=== PATIENT | female | born 1995 | race African-American/Black ===

== ENCOUNTER 2016-07-30 13:09 | Emergency (ER) | payer MEDICAID ==
--- NOTE | 2016-07-30 13:15 | ER Document Report ---
ED Medical Screen (RME) - General Stated Complaint: ABDOMINAL PAIN Notes: 20 yo female c/o lower abdominal pain x 1 week. + hx/o left ovarian cyst. + intermittant sharp lower left quadrant pain. no urinary symptoms. no fever. pt reports painful blister to left groin x 2 weeks, getting bigger and more painful. TRAVEL OUTSIDE OF THE [place] IN LAST 30 DAYS: No - Related Data Allergies/Adverse Reactions: No Known Allergies Allergy (Verified 10/30/15 20:35) Past Medical History - Past Medical History Cardiac Medical History: Reports: Hx Hypertension Neurological Medical History: Reports: Hx Migraine, Hx Seizures - PSUEDO Endocrine Medical History: Reports: Hx Hypothyroidism GI Medical History: Denies: Hx Gastritis, Hx Gastroesophageal Reflux Disease, Hx Ulcer Psychiatric Medical History: Reports: Hx Anxiety - panic attacks - Immunizations Immunizations up to date: Yes Hx Diphtheria, Pertussis, Tetanus Vaccination: Yes
[2016-07-30 13:51] LABS: ABSOLUTE LYMPHOCYTES (AUTO) 2.3 10^3/uL (0.5-4.7); ABSOLUTE MONOCYTES (AUTO) 0.4 10^3/uL (0.1-1.4); ABSOLUTE NEUT (AUTO) 4.5 10^3/uL (1.7-8.2); BASOPHILS % (AUTO) 0.4 % (0-2); EOSINOPHILS % (AUTO) 0.4 % (0-6); HEMATOCRIT 37.4 % (36.0-47.0); HEMOGLOBIN 12.4 g/dL (12.0-15.5); HGB HCT DIFFERENCE -0.2; LYMPHOCYTES % (AUTO) 31.3 % (13-45); MEAN CORPUSCULAR HGB CONC 33.1 g/dL (32.0-36.0); MEAN CORPUSCULAR VOLUME 91 fl (80-97); RED BLOOD COUNT 4.13 10^6/uL (3.72-5.28); SEGMENTED NEUTROPHILS % (AUTO) 61.9 % (42-78); WHITE BLOOD COUNT 7.3 10^3/uL (4.0-10.5)
[2016-07-30 14:07] LABS: APPEARANCE,URINE SLIGHTLY-CLOUDY; BILIRUBIN,URINE NEGATIVE (NEGATIVE); GLUCOSE, URINE NEGATIVE (NEGATIVE); KETONES,URINE NEGATIVE (NEGATIVE); LEUKOCYTE ESTERASE,URINE TRACE (NEGATIVE); NITRITE,URINE NEGATIVE (NEGATIVE); PROTEIN,URINE NEGATIVE (NEGATIVE); UROBILINOGEN,URINE NEGATIVE mg/dL (<2.0)
[2016-07-30 14:14] LABS: ALANINE AMINOTRANSFERASE 37 U/L (5-35); ALBUMIN 4.4 g/dL (3.7-5.6); ALKALINE PHOSPHATASE 60 U/L (50-135); ANION GAP 13 (5-19); ASPARTATE AMINO TRANSFERASE 26 U/L (5-30); BILIRUBIN,TOTAL 0.5 mg/dL (0.2-1.3); BLOOD UREA NITROGEN 16 mg/dL (7-20); CALCIUM 9.9 mg/dL (8.4-10.2); CARBON DIOXIDE 28 mmol/L (22-30); CHLORIDE 100 mmol/L (98-107); CREATININE RESULT 0.69 mg/dL (0.52-1.25); GLUCOSE 107 mg/dL (75-110); POTASSIUM 4.1 mmol/L (3.6-5.0); SODIUM 141.3 mmol/L (137-145); TOTAL PROTEIN 7.6 g/dL (6.3-8.2)
[2016-07-30] MEDS ORDERED: OXYCODONE-ACETAMINOPHEN 5-325 MG TABLET PO ONE (14:18)
--- NOTE | 2016-07-30 14:22 | ER Document Report ---
HPI - HPI Patient complains to provider of: left groin pain Onset: Other - Since May, worsened over the past few days Onset/Duration: Worse Quality of pain: Sharp Pain Level: 4 Context: Patient complains of a tender lump to left groin area that she states started in May of last year. Patient states she was told it was a cyst. Patient states area has gradually become more swollen and tender. Patient denies any fever. Patient additionally complains of occasional numbness to her fingertips into the anterior aspect of her left leg. Associated Symptoms: Other - Left groin lump. denies: Nonproductive cough, Fever Exacerbated by: Movement, Walking Relieved by: Denies Similar symptoms previously: Yes Recently seen / treated by doctor: No - ROS ROS below otherwise negative: Yes Systems Reviewed and Negative: Yes All other systems reviewed and negative - CONSTITUTIONAL Constitutional: DENIES: Fever, Chills - REPRODUCTIVE Reproductive: REPORTS: : - DERM Skin Color: Normal Past Medical History - Social History Smoking Status: Current Every Day Smoker Chew tobacco use (# tins/day): No Frequency of alcohol use: None Drug Abuse: None Family History: Reviewed & Not Pertinent Patient has suicidal ideation: No Patient has homicidal ideation: No - Past Medical History Cardiac Medical History: Reports: Hx Hypertension Neurological Medical History: Reports: Hx Migraine, Hx Seizures - PSUEDO Endocrine Medical History: Reports: Hx Hypothyroidism GI Medical History: Denies: Hx Gastritis, Hx Gastroesophageal Reflux Disease, Hx Ulcer Psychiatric Medical History: Reports: Hx Anxiety - panic attacks - Immunizations Immunizations up to date: Yes Hx Diphtheria, Pertussis, Tetanus Vaccination: Yes Vertical Provider Document - CONSTITUTIONAL Agree With Documented VS: Yes Exam Limitations: No Limitations General Appearance: WD/WN, No Apparent Distress - INFECTION CONTROL TRAVEL OUTSIDE OF THE [place] IN LAST 30 DAYS: No - HEENT HEENT: Atraumatic, Normal ENT Exam, Normocephalic - NECK Neck: Normal Inspection, Supple - RESPIRATORY Respiratory: Breath Sounds Normal, No Respiratory Distress O2 Sat by Pulse Oximetry: 100 - CARDIOVASCULAR Cardiovascular: Regular Rate - Apical 100 bpm, Regular Rhythm, No Murmur - GI/ABDOMEN Gastrointestinal: Abdomen Soft, Abdomen Non-Tender, No Organomegaly - REPRODUCTIVE Female Genitalia: Abnormal Inspection - Patient with a tender fluctuant swelling to left inguinal area concerning for infected abscess type lesion, no surrounding erythema. Lesion well demarcated and mobile. Exquisitely tender with palpation. - BACK Back: Normal Inspection. negative: CVA Tenderness-Right, CVA Tenderness-Left - MUSCULOSKELETAL/EXTREMETIES Musculoskeletal/Extremeties: MAX [place] - NEURO Level of Consciousness: Awake, Alert, Appropriate Motor/Sensory: No Motor Deficit - DERM Integumentary: Warm, Dry, Abscess - left groin Adult Front & Back Diagram: 1 - 2 cm diameter fluctuant cystic lesion exquisitely tender with palpation Course - Vital Signs Vital signs: Temp Pulse Resp BP Pulse Ox 97.8 F 105 H 16 123/71 100 07/30/16 13:14 07/30/16 13:14 07/30/16 13:14 07/30/16 13:14 07/30/16 13:14 - Laboratory Result Diagrams: 07/30/16 13:20 07/30/16 13:20 Laboratory results interpreted by me: 07/30/16 07/30/16 13:20 13:25 ALT 37 H Ur Leukocyte Esterase TRACE H 07/30/16 19:46 Labs- Entire Visit 07/30/16 07/30/16 07/30/16 13:20 13:20 13:20 WBC 7.3 RBC 4.13 Hgb 12.4 Hct 37.4 MCV 91 MCH 30.0 MCHC 33.1 RDW 13.0 Plt Count 213 Seg Neutrophils % 61.9 Lymphocytes % 31.3 Monocytes % 6.0 Eosinophils % 0.4 Basophils % 0.4 Absolute Neutrophils 4.5 Absolute Lymphocytes 2.3 Absolute Monocytes 0.4 Absolute Eosinophils 0.0 Absolute Basophils 0.0 Sodium 141.3 Potassium 4.1 Chloride 100 Carbon Dioxide 28 Anion Gap 13 BUN 16 Creatinine 0.69 Est GFR ( Amer) > 60 Est GFR (Non-Af Amer) > 60 Glucose 107 Calcium 9.9 Total Bilirubin 0.5 Direct Bilirubin 0.0 AST 26 ALT 37 H Alkaline Phosphatase 60 Total Protein 7.6 Albumin 4.4 Serum HCG, Qual NEGATIVE Urine Color Urine Appearance Urine pH Ur Specific [place] Urine Protein Urine Glucose (UA) Urine Ketones Urine Blood Urine Nitrite Urine Bilirubin Urine Urobilinogen Ur Leukocyte Esterase Urine WBC (Auto) Urine RBC (Auto) Urine Bacteria (Auto) Squamous Epi Cells Auto Urine Mucus (Auto) Urine Ascorbic Acid 07/30/16 13:25 WBC RBC Hgb Hct MCV MCH MCHC RDW Plt Count Seg Neutrophils % Lymphocytes % Monocytes % Eosinophils % Basophils % Absolute Neutrophils Absolute Lymphocytes Absolute Monocytes Absolute Eosinophils Absolute Basophils Sodium Potassium Chloride Carbon Dioxide Anion Gap BUN Creatinine Est GFR ( Amer) Est GFR (Non-Af Amer) Glucose Calcium Total Bilirubin Direct Bilirubin AST ALT Alkaline Phosphatase Total Protein Albumin Serum HCG, Qual Urine Color YELLOW Urine Appearance SLIGHTLY-CLOUDY Urine pH 7.0 Ur Specific [place] 1.020 Urine Protein NEGATIVE Urine Glucose (UA) NEGATIVE Urine Ketones NEGATIVE Urine Blood NEGATIVE Urine Nitrite NEGATIVE Urine Bilirubin NEGATIVE Urine Urobilinogen NEGATIVE Ur Leukocyte Esterase TRACE H Urine WBC (Auto) 0 Urine RBC (Auto) 0 Urine Bacteria (Auto) TRACE Squamous Epi Cells Auto 9 Urine Mucus (Auto) RARE Urine Ascorbic Acid NEGATIVE Procedures - Incision and Drainage Left Groin Type: Simple Anesthetic type: 1% Lidocaine Blade size: 11 I&D procedure: Betadine prep applied Incision Method: Incision made by scalpel Amount/type of drainage: large amount of purulent drainage Discharge - Discharge Clinical Impression: Abscess, Encounter for incision and drainage procedure Condition: Stable Disposition: HOME, SELF-CARE Additional Instructions: Return immediately for any new or worsening symptoms Followup with your primary care provider, Dr Petty, call tomorrow to make a followup appointment ABSCESS: You have an abscess (boil). This a pus-forming infection, usually due to staph. Some boils may be left to drain on their own, but most require lancing. From the time the tender lump first appears, it may be three or four days before the abscess is ready to letty. Local heat and rest help at this stage of treatment. An antibiotic may prevent spread of the infection. Once the abscess is opened, packing may be placed into it. This is done so pus is not sealed inside by premature closure of the cavity. The packing will be removed at your follow-up visit or you may be advised to remove it yourself at home. Sometimes this packing must be replaced a few times during healing. The wound will heal with surprisingly little scar. Depending on the size and location of an abscess, healing can take one to four weeks. You may shower and wash the area around the incision site two or three times a day. Antibiotics may be prescribed, but are usually not necessary after an abscess has been drained. If you develop fever, chills, worsening pain, or increasing swelling in the area, call the doctor or return immediately. POST INCISION AND DRAINAGE: You have had an incision made to allow drainage of an abscess. The incision must remain open so that pus and debris can drain from the wound. If the abscess cavity is large, packing is placed. This keeps the tissues from collapsing and trapping pus inside, while the body shrinks the cavity. The packing may need to be replaced every day or two. The physician will instruct you on the packing. Keep a bulky dressing over the area. Replace it if it becomes saturated with blood or pus. Do not disturb the packing (if present). You may shower and cleanse the area with gentle soap and warm water two or three times a day. Local warmth may be soothing, and may promote faster healing. Return if you develop high fever or chills, or if you note spreading redness, increasing swelling, or increasing tenderness. ORAL NARCOTIC MEDICATION: You have been given a prescription for pain control. This medication is a narcotic. It's best taken with food, as nausea can result if taken on an empty stomach. Don't operate machinery or drive within six hours of taking this medication. Do not combine this medicine with alcohol, or with any medication which can cause sedation (such as cold tablets or sleeping pills) unless you get permission from the physician. Narcotics tend to cause constipation. If possible, drink plenty of fluids and eat a diet high in fiber and fruits. TRIMETHOPRIM-SULFA: You have been given a prescription for trimethoprim-sulfa (TMS, Septra, Bactrim). This is a combination antibiotic of the sulfa class, often used for urinary tract infections, middle ear infections, bronchitis, shigella intestinal infection, and Pneumocystis pneumonia. TMS is usually well-tolerated. Occasional side effects include nausea and decreased appetite. Septra is not recommended for infants less than two months of age. Do not take this medication if you have experienced severe side effects or allergy to sulfa medicine. You should stop this medicine at once and contact your physician if you develop any rash, joint pain, shortness of breath, bruising, or jaundice ( yellow color in the skin), or if you develop any other new or unusual symptoms. FOLLOW-UP CARE: Most simple abscesses will not require a follow up visit. If you had packing placed in the abscess, remove it as instructed by the physician. If you have been referred to a physician for follow-up care, call the physicians office for an appointment as you were instructed or within the next two days. If you experience worsening or a significant change in your symptoms, return to the Emergency Department at any time for re-evaluation. Prescriptions: Oxycodone HCl/Acetaminophen [Percocet 5-325 mg Tablet] 1 tab PO ASDIR PRN #15 tablet PRN Reason: Sulfamethoxazole/Trimethoprim [Bactrim Ds Tablet] 1 each PO BID #20 tablet
[2016-07-30 16:24] VITALS: BP 120/79
== END 2016-07-30 16:24 | disposition home or self-care (01) ==
LOC: ER 13:09
DX: O99.719 Diseases of the skin and subcutaneous tissue complicating pregnancy, unspecified trimester (principal); L02.214 Cutaneous abscess of groin; O16.9 Unspecified maternal hypertension, unspecified trimester; O99.330 Smoking (tobacco) complicating pregnancy, unspecified trimester; F17.200 Nicotine dependence, unspecified, uncomplicated; Z3A.00 Weeks of gestation of pregnancy not specified
CPT/HCPCS: 36415; 80053; 81001; 84703; 85025; 99283

== ENCOUNTER 2016-09-09 21:43 | Emergency (ER) | payer SELFPAY | END 2016-09-10 02:15 | disposition left against medical advice (07) | LOC: ER 21:43 | DX: Z53.21 Procedure and treatment not carried out due to patient leaving prior to being seen by health care provider (principal) ==

== ENCOUNTER 2016-09-19 15:55 | Emergency (ER) | payer MEDICAID, OTHER ==
--- NOTE | 2016-09-19 16:55 | ER Document Report ---
ED General - General Mode of Arrival: Ambulatory Information source: Patient TRAVEL OUTSIDE OF THE [place] IN LAST 30 DAYS: No - HPI Onset: Other - see narrative Onset/Duration: Persistent Quality of pain: No pain Associated symptoms: None Similar symptoms previously: Yes <GENO PHIPPS - Last Filed: 09/19/16 18:57> <FISHTRACIE CLAUDE - Last Filed: 09/19/16 22:59> - General Chief Complaint: Probable Seizure Stated Complaint: POSSIBLE SEIZURE Notes: Patient is a 20-year-old female that presents to the emergency department today with complaints of a seizure. 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 Patient states she was diagnosed with Keppra to help control her pseudoseizures however they "make her sick" so she stopped taking them a few days ago. Patient states that her neurologist states that her pseudoseizures are brought on by stress and she is out of her xanax and she does not have the money to see her doctor. (GENO PHIPPS) - Related Data Allergies/Adverse Reactions: No Known Allergies Allergy (Verified 07/30/16 13:15) Past Medical History - General Information source: Patient - Social History Smoking Status: Never Smoker Cigarette use (# per day): No Frequency of alcohol use: None Drug Abuse: None Lives with: Family Family History: Reviewed & Not Pertinent - Past Medical History Cardiac Medical History: Reports: Hx Hypertension Neurological Medical History: Reports: Hx Migraine, Hx Seizures - pseudo Endocrine Medical History: Reports: Hx Hypothyroidism Psychiatric Medical History: Reports: Hx Anxiety - panic attacks Surgical Hx: Negative - Immunizations Immunizations up to date: Yes Hx Diphtheria, Pertussis, Tetanus Vaccination: Yes <GENO PHIPPS - Last Filed: 09/19/16 18:57> Review of Systems - Review of Systems Constitutional: No symptoms reported EENT: No symptoms reported Cardiovascular: No symptoms reported Respiratory: No symptoms reported Gastrointestinal: No symptoms reported Genitourinary: No symptoms reported Female Genitourinary: No symptoms reported Musculoskeletal: No symptoms reported Skin: No symptoms reported Hematologic/Lymphatic: No symptoms reported Neurological/Psychological: See HPI, Seizure - pseudo -: Yes All other systems reviewed and negative <GENO PHIPPS - Last Filed: 09/19/16 18:57> Physical Exam - Vital signs Interpretation: Normal - General General appearance: Appears well, Alert - HEENT Head: Normocephalic, Atraumatic Eyes: Normal Pupils: PERRL - Respiratory Respiratory status: No respiratory distress Chest status: Nontender Breath sounds: Normal Chest palpation: Normal - Cardiovascular Rhythm: Regular Heart sounds: Normal auscultation Murmur: No - Abdominal Inspection: Normal Distension: No distension Bowel sounds: Normal Tenderness: Nontender Organomegaly: No organomegaly - Back Back: Normal, Nontender - Extremities General upper extremity: Normal inspection, Nontender, Normal color, Normal ROM , Normal temperature General lower extremity: Normal inspection, Nontender, Normal color, Normal ROM , Normal temperature, Normal weight bearing. No: Roxie's sign - Neurological Neuro grossly intact: Yes Cognition: Normal Orientation: AAOx4 Pretty Coma Scale Eye Opening: Spontaneous [place] Coma Scale Verbal: Oriented [place] Coma Scale Motor: Obeys Commands [place] Coma Scale Total: 15 Speech: Normal Motor strength normal: LUE, RUE, LLE, RLE Sensory: Normal - Psychological Associated symptoms: Normal affect, Anxious - Skin Skin Temperature: Warm Skin Moisture: Dry Skin Color: Normal <TRACIE WHITTEN - Last Filed: 09/19/16 22:59> - Vital signs Vitals: Pulse Resp BP Pulse Ox 111 H 20 121/75 100 09/19/16 16:08 09/19/16 16:08 09/19/16 16:08 09/19/16 16:08 Course - Laboratory Result Diagrams: 09/19/16 16:43 09/19/16 18:03 <GENO PHIPPS - Last Filed: 09/19/16 18:57> - Laboratory Result Diagrams: 09/19/16 16:43 09/19/16 18:03 <TRACIE WHITTEN - Last Filed: 09/19/16 22:59> - Re-evaluation Re-evalutation: 09/19/16 Patient with no acute findings on blood work. Patient with a history of pseudoseizures. Discussed taking Depakote versus Keppra. Patient thought that she does not have insurance but in actuality she does. States that she can call her neurologist on Thursday for follow-up appointment. Would still like a prescription for Depakote to discuss this medication with her neurologist. In the meantime, she will take the Keppra she has at home. They will for discharge return if any worsening or concerning symptoms. (TRACIE WHITTEN) - Vital Signs Vital signs: Temp Pulse Resp BP Pulse Ox 98.7 F 89 16 122/70 100 09/19/16 19:21 09/19/16 19:21 09/19/16 19:21 09/19/16 19:21 09/19/16 19:21 Discharge <GENO PHIPPS - Last Filed: 09/19/16 18:57> <TRACIE WHITTEN - Last Filed: 09/19/16 22:59> - Discharge Clinical Impression: Seizure Headache Qualifiers: Headache type: unspecified Headache chronicity pattern: acute headache Intractability: not intractable Qualified Code(s): R51 - Headache Condition: Stable Disposition: HOME, SELF-CARE Instructions: Seizure, Known Epileptic ([facility]) Prescriptions: Divalproex Sodium [Depakote] 500 mg PO BID #60 tablet. Lorazepam [Ativan 0.5 mg Tablet] 0.5 mg PO BIDP PRN #20 tab PRN Reason: Forms: Return to Work Scribe Attestation: 09/19/16 22:59 I personally performed the services described in the documentation, reviewed and edited the documentation which was dictated to the scribe in my presence, and it accurately records my words and actions. (TRACIE WHITTEN)
[2016-09-19] MEDS ORDERED: LORAZEPAM 0.5 MG TABLET PO ONE (17:03)
[2016-09-19 17:05] LABS: ABSOLUTE LYMPHOCYTES (AUTO) 2.2 10^3/uL (0.5-4.7); ABSOLUTE MONOCYTES (AUTO) 0.5 10^3/uL (0.1-1.4); ABSOLUTE NEUT (AUTO) 5.8 10^3/uL (1.7-8.2); BASOPHILS % (AUTO) 0.5 % (0-2); EOSINOPHILS % (AUTO) 0.2 % (0-6); HEMATOCRIT 40.4 % (36.0-47.0); HEMOGLOBIN 13.2 g/dL (12.0-15.5); HGB HCT DIFFERENCE -0.8; LYMPHOCYTES % (AUTO) 26.2 % (13-45); MEAN CORPUSCULAR HEMOGLOBIN 29.7 pg (27.0-33.4); MEAN CORPUSCULAR HGB CONC 32.6 g/dL (32.0-36.0); MEAN CORPUSCULAR VOLUME 91 fl (80-97); MONOCYTES % (AUTO) 5.5 % (3-13); RED BLOOD COUNT 4.43 10^6/uL (3.72-5.28); RED CELL DISTRIBUTION WIDTH 13.5 % (11.5-14.0); SEGMENTED NEUTROPHILS % (AUTO) 67.6 % (42-78); WHITE BLOOD COUNT 8.6 10^3/uL (4.0-10.5)
[2016-09-19] MEDS ORDERED: DIPHENHYDRAMINE HCL 50 MG/ML VIAL IV ONE (17:46)
[2016-09-19] MEDS ORDERED: ONDANSETRON HCL INJ/PF 4 MG/2 ML SDV IV ONE (17:46)
[2016-09-19 17:59] LABS: APPEARANCE,URINE CLEAR; BILIRUBIN,URINE NEGATIVE (NEGATIVE); GLUCOSE, URINE NEGATIVE (NEGATIVE); KETONES,URINE NEGATIVE (NEGATIVE); LEUKOCYTE ESTERASE,URINE NEGATIVE (NEGATIVE); NITRITE,URINE NEGATIVE (NEGATIVE); PROTEIN,URINE NEGATIVE (NEGATIVE); URINE SPECIFIC GRAVITY 1.019; UROBILINOGEN,URINE NEGATIVE mg/dL (<2.0)
[2016-09-19 18:35] LABS: ALANINE AMINOTRANSFERASE 26 U/L (5-35); ALBUMIN 4.3 g/dL (3.7-5.6); ALKALINE PHOSPHATASE 52 U/L (50-135); ANION GAP 11 (5-19); ASPARTATE AMINO TRANSFERASE 24 U/L (5-30); BILIRUBIN,TOTAL 0.6 mg/dL (0.2-1.3); BLOOD UREA NITROGEN 15 mg/dL (7-20); CALCIUM 9.8 mg/dL (8.4-10.2); CARBON DIOXIDE 25 mmol/L (22-30); CHLORIDE 105 mmol/L (98-107); CREATININE RESULT 0.75 mg/dL (0.52-1.25); GLUCOSE 86 mg/dL (75-110); POTASSIUM 4.2 mmol/L (3.6-5.0); SODIUM 141.2 mmol/L (137-145); TOTAL PROTEIN 7.3 g/dL (6.3-8.2)
[2016-09-19 19:25] VITALS: BP 122/70
== END 2016-09-19 19:29 | disposition home or self-care (01) ==
LOC: ER 15:55
DX: R56.9 Unspecified convulsions (principal); R51 Headache; Z79.899 Other long term (current) drug therapy
CPT/HCPCS: 99284; 96374; 96375; 36415; 85025; 80053; 81001; J1200; J2405

== ENCOUNTER → 2016-10-01 | Outpatient (CLI) | payer OTHER ==
[2016-10-01 10:25] LABS: ALANINE AMINOTRANSFERASE 27 U/L (5-35); ALBUMIN 4.5 g/dL (3.7-5.6); ALKALINE PHOSPHATASE 58 U/L (50-135); ANION GAP 13 (5-19); ASPARTATE AMINO TRANSFERASE 25 U/L (5-30); BILIRUBIN,TOTAL 0.9 mg/dL (0.2-1.3); BLOOD UREA NITROGEN 15 mg/dL (7-20); CALCIUM 10.3 mg/dL (8.4-10.2); CARBON DIOXIDE 26 mmol/L (22-30); CHLORIDE 103 mmol/L (98-107); GLUCOSE 80 mg/dL (75-110); SODIUM 141.9 mmol/L (137-145); TOTAL PROTEIN 7.8 g/dL (6.3-8.2)
== END ==
LOC: CCC 08:47
DX: F41.9 Anxiety disorder, unspecified (principal)
CPT/HCPCS: 36415; 80053

== ENCOUNTER 2016-11-19 10:46 | Emergency (ER) | payer MEDICAID, OTHER ==
[2016-11-19 11:01] VITALS: BP 121/69
[2016-11-19] MEDS ORDERED: METOCLOPRAMIDE HCL ORAL SOLN 10 MG/10 ML UDCUP PO ONE (11:20)
--- NOTE | 2016-11-19 11:20 | ER Document Report ---
ED GI/ - General Chief Complaint: Abdominal Pain Stated Complaint: ABDOMINAL PAIN/VOMITING Time seen by provider: 11:20 Mode of Arrival: Ambulatory Information source: Patient TRAVEL OUTSIDE OF THE [place] IN LAST 30 DAYS: No - HPI Patient complains to provider of: Missed/Late menses, Pelvic pain, Vaginal bleeding, Vomiting Timing/Duration: Gradual, Persistent Quality of pain: No pain Vaginal bleeding (Compared to normal period): Spotting Menstrual period history: Abnormal Associated symptoms: Nausea, Vomiting Exacerbated by: Denies Relieved by: Denies Similar symptoms previously: No Recently seen / treated by doctor: No Notes: 11/19/16 11:21 Patient is 21-year-old female who presents to the emergency room complaining of no menstrual cycle 3 months, vaginal spotting over the past week, mild pelvic cramping at times, breast fullness and tenderness, nausea and vomiting, patient reports history of 1 previous which she miscarried in July of this year, she's not taken a home test - Related Data Allergies/Adverse Reactions: Penicillins Allergy (Verified 11/19/16 10:58) Past Medical History - General Information source: Patient - Social History Smoking Status: Current Every Day Smoker Chew tobacco use (# tins/day): No Frequency of alcohol use: None Drug Abuse: None Family History: Reviewed & Not Pertinent Patient has suicidal ideation: No Patient has homicidal ideation: No - Past Medical History Cardiac Medical History: Reports: Hx Hypertension Neurological Medical History: Reports: Hx Migraine, Hx Seizures - pseudo Endocrine Medical History: Reports: Hx Hypothyroidism Renal/ Medical History: Denies: Hx Peritoneal Dialysis GI Medical History: Denies: Hx Gastritis, Hx Gastroesophageal Reflux Disease, Hx Ulcer Psychiatric Medical History: Reports: Hx Anxiety - panic attacks Surgical Hx: Negative - Immunizations Immunizations up to date: Yes Hx Diphtheria, Pertussis, Tetanus Vaccination: Yes Review of Systems - Review of Systems Constitutional: No symptoms reported EENT: No symptoms reported Cardiovascular: No symptoms reported Respiratory: No symptoms reported Gastrointestinal: See HPI Genitourinary: No symptoms reported Female Genitourinary: See HPI Musculoskeletal: No symptoms reported Skin: No symptoms reported Hematologic/Lymphatic: No symptoms reported Neurological/Psychological: No symptoms reported -: Yes All other systems reviewed and negative Physical Exam - Vital signs Vitals: Temp Pulse Resp BP Pulse Ox 98.7 F 97 16 121/69 96 11/19/16 10:58 05/03/17 10:58 11/19/16 10:58 11/19/16 10:58 11/19/16 10:58 Interpretation: Normal - General General appearance: Appears well, Alert - HEENT Head: Normocephalic, Atraumatic Eyes: Normal Pupils: PERRL - Respiratory Respiratory status: No respiratory distress Chest status: Nontender Breath sounds: Normal Chest palpation: Normal - Cardiovascular Rhythm: Regular Heart sounds: Normal auscultation Murmur: No - Abdominal Inspection: Normal Distension: No distension Bowel sounds: Normal Tenderness: Nontender Organomegaly: No organomegaly - Back Back: Normal, Nontender - Extremities General upper extremity: Normal inspection, Nontender, Normal color, Normal ROM , Normal temperature General lower extremity: Normal inspection, Nontender, Normal color, Normal ROM , Normal temperature, Normal weight bearing. No: Roxie's sign - Neurological Neuro grossly intact: Yes Cognition: Normal Orientation: AAOx4 Pretty Coma Scale Eye Opening: Spontaneous [place] Coma Scale Verbal: Oriented [place] Coma Scale Motor: Obeys Commands [place] Coma Scale Total: 15 Speech: Normal Motor strength normal: LUE, RUE, LLE, RLE Sensory: Normal - Psychological Associated symptoms: Normal affect, Normal mood - Skin Skin Temperature: Warm Skin Moisture: Dry Skin Color: Normal Course - Re-evaluation Re-evalutation: 11/19/16 14:02 Lab and imaging findings were discussed with patient at bedside which are consistent with a positive IUP measuring 8 weeks, patient was advised to follow- up with AUTHORIZATION REPRESENTATIVE, quit smoking, return if symptoms worsen, patient acknowledges understanding and agreement with this plan - Vital Signs Vital signs: Temp Pulse Resp BP Pulse Ox 98.7 F 97 16 121/69 96 11/19/16 10:58 11/19/16 10:58 11/19/16 10:58 11/19/16 10:58 11/19/16 10:58 - Laboratory Result Diagrams: 11/19/16 11:20 11/19/16 11:20 Laboratory results interpreted by me: 11/19/16 11/19/16 11/19/16 11:20 11:20 11:25 RDW 14.1 H Beta HCG, Quant [id number] H Ur Leukocyte Esterase TRACE H Discharge - Discharge Clinical Impression: Pelvic cramping Qualifiers: Weeks of gestation: 8 weeks Qualified Code(s): Z3A.08 - 8 weeks gestation of Condition: Stable Disposition: HOME, SELF-CARE Instructions: Bleeding During Early ([facility]), Pelvic Pain in ( [facility]), ([facility]) Additional Instructions: Follow-up with AUTHORIZATION REPRESENTATIVE in 2-3 days. Return to the emergency room immediately if symptoms worsen or any additional concerns. Stop smoking! Forms: Smoking Cessation Education, Return to School
[2016-11-19 11:40] LABS: ABSOLUTE LYMPHOCYTES (AUTO) 1.5 10^3/uL (0.5-4.7); ABSOLUTE MONOCYTES (AUTO) 0.3 10^3/uL (0.1-1.4); ABSOLUTE NEUT (AUTO) 4.4 10^3/uL (1.7-8.2); BASOPHILS % (AUTO) 0.3 % (0-2); EOSINOPHILS % (AUTO) 0.1 % (0-6); HEMATOCRIT 37.1 % (36.0-47.0); HEMOGLOBIN 12.6 g/dL (12.0-15.5); HGB HCT DIFFERENCE 0.7; LYMPHOCYTES % (AUTO) 23.8 % (13-45); MEAN CORPUSCULAR HEMOGLOBIN 30.8 pg (27.0-33.4); MEAN CORPUSCULAR HGB CONC 33.8 g/dL (32.0-36.0); MEAN CORPUSCULAR VOLUME 91 fl (80-97); MONOCYTES % (AUTO) 4.8 % (3-13); RED BLOOD COUNT 4.07 10^6/uL (3.72-5.28); RED CELL DISTRIBUTION WIDTH 14.1 % (11.5-14.0); WHITE BLOOD COUNT 6.2 10^3/uL (4.0-10.5)
[2016-11-19 11:49] LABS: APPEARANCE,URINE SLIGHTLY-CLOUDY; BILIRUBIN,URINE NEGATIVE (NEGATIVE); GLUCOSE, URINE NEGATIVE (NEGATIVE); KETONES,URINE NEGATIVE (NEGATIVE); LEUKOCYTE ESTERASE,URINE TRACE (NEGATIVE); NITRITE,URINE NEGATIVE (NEGATIVE); PROTEIN,URINE NEGATIVE (NEGATIVE); URINE SPECIFIC GRAVITY 1.013; UROBILINOGEN,URINE NEGATIVE mg/dL (<2.0)
[2016-11-19 11:58] LABS: ALANINE AMINOTRANSFERASE 27 U/L (9-52); ALBUMIN 4.3 g/dL (3.5-5.0); ALKALINE PHOSPHATASE 50 U/L (38-126); ANION GAP 15 (5-19); ASPARTATE AMINO TRANSFERASE 22 U/L (14-36); BILIRUBIN,DIRECT 0.2 mg/dL (0.0-0.4); BILIRUBIN,TOTAL 0.7 mg/dL (0.2-1.3); BLOOD UREA NITROGEN 9 mg/dL (7-20); CALCIUM 9.7 mg/dL (8.4-10.2); CARBON DIOXIDE 23 mmol/L (22-30); CHLORIDE 103 mmol/L (98-107); GLUCOSE 92 mg/dL (75-110); LIPASE 51.6 U/L (23-300); SODIUM 140.8 mmol/L (137-145); TOTAL PROTEIN 7.3 g/dL (6.3-8.2)
== END 2016-11-19 14:07 | disposition home or self-care (01) ==
LOC: ER 10:46
DX: O26.891 Other specified pregnancy related conditions, first trimester (principal); R10.2 Pelvic and perineal pain; O21.9 Vomiting of pregnancy, unspecified; O26.851 Spotting complicating pregnancy, first trimester; O99.331 Smoking (tobacco) complicating pregnancy, first trimester; O16.1 Unspecified maternal hypertension, first trimester; Z3A.08 8 weeks gestation of pregnancy; Z87.59 Personal history of other complications of pregnancy, childbirth and the puerperium; Z88.0 Allergy status to penicillin
CPT/HCPCS: 99284; 36415; 87086; 84702; 83690; 85025; 80053; 81001; 76801; J3490

== ENCOUNTER 2016-11-23 12:44 | Emergency (ER) | payer MEDICAID ==
--- NOTE | 2016-11-23 13:38 | ER Document Report ---
ED Seizure - General Chief Complaint: Probable Seizure Stated Complaint: POSSIBLE SEIZURE Notes: Patient is a 21-year-old female who is 9 weeks , who presents emergency department via EMS after 2 witnessed pseudoseizures by family. Patient states that she has recently stopped taking her Depakote about 6 weeks ago when she was sent home on it from the emergency department. She states that she did not like how it made her feel sick and she has not followed up with her neurologist or her primary care physician about this. She had been taking Ativan which was also prescribed for her by the emergency department which seemed to have her seizure free. Since she has run out of Ativan she states that her only seizure activity has been today. She states that she is very stressed regarding her current relationship with the father of her baby and that has seemed to trigger her anxiety which as she's been told will trigger her pseudoseizures. She is due to follow up with the health department this week - Related Data Allergies/Adverse Reactions: Penicillins Allergy (Verified 11/19/16 10:58) Past Medical History - Social History Smoking Status: Never Smoker Chew tobacco use (# tins/day): No Frequency of alcohol use: None Drug Abuse: None Family History: Reviewed & Not Pertinent - Past Medical History Cardiac Medical History: Reports: Hx Hypertension Neurological Medical History: Reports: Hx Migraine, Hx Seizures - pseudo Endocrine Medical History: Reports: Hx Hypothyroidism Renal/ Medical History: Denies: Hx Peritoneal Dialysis GI Medical History: Denies: Hx Gastritis, Hx Gastroesophageal Reflux Disease, Hx Ulcer Psychiatric Medical History: Reports: Hx Anxiety - panic attacks - Immunizations Immunizations up to date: Yes Hx Diphtheria, Pertussis, Tetanus Vaccination: Yes Review of Systems - Review of Systems Constitutional: No symptoms reported Cardiovascular: No symptoms reported Respiratory: No symptoms reported Gastrointestinal: No symptoms reported Neurological/Psychological: See HPI Physical Exam - Vital signs Vitals: Temp Pulse Resp BP Pulse Ox 98.9 F 83 20 110/60 100 11/23/16 13:32 11/23/16 13:32 11/23/16 13:32 11/23/16 13:32 11/23/16 13:32 - Notes Notes: PHYSICAL EXAM GENERAL: Alert, interacts well. HEAD: Normocephalic, atraumatic. EYES: Pupils equal, round, and reactive to light. Extraocular movements intact. ENT: Oral mucosa moist, tongue midline. NECK: Full range of motion. Supple. Trachea midline. LUNGS: Clear to auscultation bilaterally, no wheezes, rales, or rhonchi. No respiratory distress. HEART: Regular rate and rhythm. No murmurs, gallops, or rubs. ABDOMEN: Soft, nondistended, nontender. No guarding, rebound, or rigidity.. Bowel sounds present in all 4 quadrants. EXTREMITIES: Moves all 4 extremities spontaneously. No edema, radial and dorsalis pedis pulses 2/4 bilaterally. No cyanosis. NEUROLOGICAL: Alert and oriented x4. Normal speech. PSYCH: Normal affect, normal mood. SKIN: Warm, dry, normal turgor. No rashes or lesions noted. Course - Re-evaluation Re-evalutation: 11/23/16 19:53 Discussed with patient that since she is and has been diagnosed with pseudoseizures that it is not indicated to start her on any new antiepileptic medications. She at this time does not want to go home with any benzodiazepines. Discussed with her the importance of following up with her neurologist and [facility] regarding today's visit. Otherwise she is hemodynamically stable, no acute distress and afebrile and stable for discharge - Vital Signs Vital signs: Temp Pulse Resp BP Pulse Ox 98.9 F 82 18 128/63 H 100 11/23/16 14:21 11/23/16 14:21 11/23/16 14:21 11/23/16 14:21 11/23/16 14:21 Discharge - Discharge Clinical Impression: Pseudoseizure, Condition: Good Disposition: HOME, SELF-CARE Additional Instructions: Please follow-up with your neurologist Dr. Campos or [facility] The best thing for your pseudoseizures is to keep your stress level low
[2016-11-23 14:23] VITALS: BP 128/63
== END 2016-11-23 14:23 | disposition home or self-care (01) ==
LOC: ER 12:44
DX: O99.341 Other mental disorders complicating pregnancy, first trimester (principal); F44.5 Conversion disorder with seizures or convulsions; O16.1 Unspecified maternal hypertension, first trimester; Z3A.09 9 weeks gestation of pregnancy; Z88.0 Allergy status to penicillin
CPT/HCPCS: 99284

== ENCOUNTER 2016-12-04 12:56 | Emergency (ER) | payer MEDICAID ==
[2016-12-04 13:42] LABS: ALCOHOL 37 mg/dL (NONE DETECTED)
[2016-12-04 14:11] LABS: APPEARANCE,URINE SLIGHTLY-CLOUDY; BILIRUBIN,URINE NEGATIVE (NEGATIVE); GLUCOSE, URINE NEGATIVE (NEGATIVE); KETONES,URINE TRACE mg/dL (NEGATIVE); LEUKOCYTE ESTERASE,URINE NEGATIVE (NEGATIVE); NITRITE,URINE NEGATIVE (NEGATIVE); PROTEIN,URINE NEGATIVE (NEGATIVE); URINE SPECIFIC GRAVITY 1.011; UROBILINOGEN,URINE NEGATIVE mg/dL (<2.0)
--- NOTE | 2016-12-04 14:26 | ER Document Report ---
ED General - General Chief Complaint: Probable Seizure Stated Complaint: POSSIBLE SEIZURE Time Seen by Provider: 12/04/16 13:20 Notes: Patient is a 21-year-old female, 10 weeks , presents with lower abdominal pain. She was at her primary care physician and no heart tones were found. She was sent to the emergency room for further evaluation. While in the emergency waiting room, she had flailing activity. She has been diagnosed with pseudoseizures in the past. The patient said that she drank some alcohol because she thought she lost her baby today. Patient denies nausea , vomiting, leakage of fluid, vaginal bleeding, chest pain, SOB, headache, fevers, neck stiffness, focal weakness or numbness. TRAVEL OUTSIDE OF THE [place] IN LAST 30 DAYS: No - Related Data Allergies/Adverse Reactions: Penicillins Allergy (Verified 11/19/16 10:58) Past Medical History - General Information source: Patient - Social History Smoking Status: Unknown if Ever Smoked Chew tobacco use (# tins/day): No Frequency of alcohol use: Social Drug Abuse: None Family History: Reviewed & Not Pertinent - Past Medical History Cardiac Medical History: Reports: Hx Hypertension Neurological Medical History: Reports: Hx Migraine, Hx Seizures - pseudo Endocrine Medical History: Reports: Hx Hypothyroidism Renal/ Medical History: Denies: Hx Peritoneal Dialysis GI Medical History: Denies: Hx Gastritis, Hx Gastroesophageal Reflux Disease, Hx Ulcer Psychiatric Medical History: Reports: Hx Anxiety - panic attacks Surgical Hx: Negative - Immunizations Immunizations up to date: Yes Hx Diphtheria, Pertussis, Tetanus Vaccination: Yes Review of Systems - Review of Systems Notes: REVIEW OF SYSTEMS: CONSTITUTIONAL: -fevers, -chills EENT: -eye pain, -difficulty swallowing, -nasal congestion CARDIOVASCULAR:-chest pain, -syncope. RESPIRATORY: -cough, -SOB GASTROINTESTINAL: +abdominal pain, -nausea, -vomiting, -diarrhea GENITOURINARY: -dysuria, -hematuria MUSCULOSKELETAL: -back pain, -neck pain SKIN: -rash or skin lesions. HEMATOLOGIC: -easy bruising or bleeding. LYMPHATIC: -swollen, enlarged glands. NEUROLOGICAL: +possible seizure activity, -altered mental status or loss of consciousness, -headache, -neurologic symptoms PSYCHIATRIC: -anxiety, -depression. ALL OTHER SYSTEMS REVIEWED AND NEGATIVE. Physical Exam - Vital signs Vitals: Resp Pulse Ox 25 H 100 12/04/16 13:00 12/04/16 13:00 - Notes Notes: PHYSICAL EXAMINATION: GENERAL: Well-appearing, well-nourished and in no acute distress. HEAD: Atraumatic, normocephalic. EYES: Pupils equal round and reactive to light, extraocular movements intact, sclera anicteric, conjunctiva are normal. ENT: nares patent, oropharynx clear without exudates. Moist mucous membranes. NECK: Normal range of motion, supple without lymphadenopathy LUNGS: Breath sounds clear to auscultation bilaterally and equal. No wheezes rales or rhonchi. HEART: Regular rate and rhythm without murmurs ABDOMEN: Soft, nontender, normoactive bowel sounds. No guarding, no rebound. No masses appreciated. EXTREMITIES: Normal range of motion, no pitting or edema. No cyanosis. NEUROLOGICAL: Cranial nerves grossly intact. Normal speech, normal gait. Normal sensory, motor, and reflex exams. PSYCH: Normal mood, normal affect. SKIN: Warm, Dry, normal turgor, no rashes or lesions noted. Course - Re-evaluation Re-evalutation: 12/04/16 14:55 Pt has evidence of a demise on US. Spoke to Dr. Ashraf (OB ) and recommend having patient see her in the office tomorrow morning for a repeat ultrasound to confirm the findings and discuss options such as Cytotec. Patient comfortable with plan and understands the follow-up. Do not suspect true seizure activity while in the ER without postictal changes and her remaining conscious during the activity. - Vital Signs Vital signs: Temp Pulse Resp BP Pulse Ox 98.8 F 15 114/74 100 12/04/16 14:01 12/04/16 14:01 12/04/16 14:01 12/04/16 14:01 - Laboratory Laboratory results interpreted by me: 12/04/16 12/04/16 12:58 13:41 Beta HCG, Quant 89172.00 H Urine Ketones TRACE H - Diagnostic Test Radiology reviewed: Image reviewed, Reports reviewed Radiology results interpreted by me: US: No heart tones. Evidence of demise. Discharge - Discharge Clinical Impression: demise Condition: Stable Disposition: HOME, SELF-CARE Additional Instructions: Your ultrasound shows a fetus that is smaller than estimated date, most likely a nonviable fetus. You must follow-up with Dr. Ashraf (OB) tomorrow for repeat ultrasound to confirm this finding and to discuss further treatment options. You may have vaginal bleeding, increased abdominal pain or may pass clots. Take Motrin for pain and [place] for severe pain. THREATENED MISCARRIAGE: You have been evaluated for a possible miscarriage. At this time, there is an indication that a miscarriage will occur. A miscarriage occurs when the fetus is abnormal. There is no medicine or treatment for it. You should rest in bed until the symptoms have resolved. Do not douche or have sex for at least a week, or until OK'd by the doctor. Call the doctor or return for re-examination if there is an increase in bleeding or cramping, or passage of tissue. RHOGAM: Rhogam is given to a woman who has Rh negative blood type when she has vaginal bleeding during her or at the time of the delivery of her baby. If a woman is Rh negative, her body will form antibodies against red blood cells from an Rh positive fetus or baby that mix with her blood during a threatened or actual miscarraige or delivery. These antibodies will remain in the woman's body forever and will attack any future Rh positive fetus preventing it from developing into a normal baby. Rhogam is given to prevent the mother's body from forming these antibodies. REPEAT BLOOD TEST: At this time, it is uncertain if you have a viable . During the first three months of , the hormone produced from the placenta will steadily rise, usually doubling in value every 2 - 3 days. In order to determine if your is viable and likely be succesful, a repeat of this blood test for the hormone is recommended in 2 - 3 days. An order for this test to be done as an outpatient is being provided. After you have this repeat test done, call your doctor or call us for the results. If the value of the test is increasing as would be expected in a normal , then your is likely to be ok. However, if the value of the test is declining, it will suggest something has happened with your and it will not likely be a successful . FOLLOW-UP CARE: If you have been referred to a physician for follow-up care, call the physician s office for an appointment as you were instructed or within the next two days. If you experience worsening or a significant change in your symptoms (very heavy bleeding with large clots of blood, passage of tissue, more severe abdominal / pelvic pain or cramping, feeling faint or severe weakness, fever, etc.), notify the physician immediately or return to the Emergency Department at any time for re-evaluation. OBSTETRIC-GYNECOLOGIC (OB-MINISTER OF RELIGION) PHYSICIANS IN [place]: [facility] [address] [place], [place] [phone] [facility] [address] [place], [place] [phone] For active duty and dependents diagnosed with a threatened or miscarriage, you should follow up in the following manner: Standard patients who have a local civilian provider should follow up with that provider. Patients of the Family Practice Clinic should call your Team Nurse at 8: 00 am the following morning for further instructions. If you are neither a Standard patient nor a patient of the Family Practice Clinic, you should follow up at the [facility] ([facility]) . Patients already enrolled in the [facility], Prime patients not assigned to the Family Practice Clinic, and Active Duty patients not assigned to Family Practice Clinic should report to the [facility] at 8:00 am the next morning that the [facility] is open and then you will be seen in the OB Clinic at 11:00 am. Prescriptions: Hydrocodone/Acetaminophen [[place] 5-325 mg Tablet] 1 tab PO Q6H PRN #8 tablet PRN Reason: Referrals: ALICE ASHRAF MD [ACTIVE STAFF] - Follow up as needed
[2016-12-04] MEDS ORDERED: OXYCODONE-ACETAMINOPHEN 5-325 MG TABLET PO ONE (14:43)
[2016-12-04] MEDS ORDERED: IBUPROFEN 600 MG TABLET PO ONE (14:43)
[2016-12-04 15:16] VITALS: BP 118/77
== END 2016-12-04 15:18 | disposition home or self-care (01) ==
LOC: ER 12:56
DX: O02.1 Missed abortion (principal); O26.891 Other specified pregnancy related conditions, first trimester; R10.30 Lower abdominal pain, unspecified; O16.1 Unspecified maternal hypertension, first trimester; Z3A.10 10 weeks gestation of pregnancy; Z88.0 Allergy status to penicillin
CPT/HCPCS: 99284; 36415; 80307; 84702; 81001; 76801; J3490

== ENCOUNTER 2016-12-07 14:36 | Emergency (ER) | payer MEDICAID ==
[2016-12-07] MEDS ORDERED: NORMAL SALINE 1000 ML 1,000 ML IV ONE (16:00)
[2016-12-07] MEDS ORDERED: IBUPROFEN 600 MG TABLET PO ONE (16:00)
[2016-12-07] MEDS ORDERED: LORAZEPAM INJ 2 MG/1 ML VIAL IV ONE (16:00)
--- NOTE | 2016-12-07 16:02 | ER Document Report ---
ED General - General Chief Complaint: Pelvic Pain Stated Complaint: ABDOMINAL PAIN Time Seen by Provider: 12/07/16 15:32 Mode of Arrival: Ambulatory Information source: Patient, Relative Notes: This is a 21-year-old female at about 10 WGA who was seen here 3 days ago and diagnosed with demise and instructed to follow up OB the next day. She has a follow up with OB in 2 more days, but returns today for severe lower abdominal cramps. No vaginal bleeding. No fever. No vomiting. She has not taken any pain meds today, states she did not get her meds filled from 3 days ago because she lost her prescription, and she did not try ibuprofen today. She has a history of pseudoseizures. She is not on antiepileptics. She has seizure like episodes brought on by stress or pain. She was noted to have seizure like activity in the waiting room and was brought straight back to the ER. TRAVEL OUTSIDE OF THE [place] IN LAST 30 DAYS: No - Related Data Allergies/Adverse Reactions: Penicillins Allergy (Verified 12/07/16 14:49) Past Medical History - General Information source: Patient - Social History Smoking Status: Unknown if Ever Smoked Family History: Reviewed & Not Pertinent Patient has suicidal ideation: No Patient has homicidal ideation: No - Past Medical History Cardiac Medical History: Reports: Hx Hypertension Neurological Medical History: Reports: Hx Migraine, Hx Seizures - pseudo Endocrine Medical History: Reports: Hx Hypothyroidism Renal/ Medical History: Denies: Hx Peritoneal Dialysis GI Medical History: Denies: Hx Gastritis, Hx Gastroesophageal Reflux Disease, Hx Ulcer Psychiatric Medical History: Reports: Hx Anxiety - panic attacks - Immunizations Immunizations up to date: Yes Hx Diphtheria, Pertussis, Tetanus Vaccination: Yes Review of Systems - Review of Systems Constitutional: denies: Chills, Fever EENT: No symptoms reported Cardiovascular: No symptoms reported Respiratory: No symptoms reported Gastrointestinal: See HPI Musculoskeletal: No symptoms reported Skin: No symptoms reported Hematologic/Lymphatic: No symptoms reported Neurological/Psychological: See HPI Physical Exam - Vital signs Vitals: Temp Pulse Resp BP Pulse Ox 98.4 F 118 H 16 145/82 H 100 12/07/16 14:49 12/07/16 14:49 12/07/16 14:49 12/07/16 14:49 12/07/16 14:49 - Notes Notes: PHYSICAL EXAMINATION: GENERAL: anxious, moaning in pain, difficult to examine secondary to pain, but alert and conversant HEAD: Atraumatic, normocephalic. EYES: Pupils equal round and reactive to light, extraocular movements intact, sclera anicteric, conjunctiva are normal. ENT: nares patent, oropharynx clear without exudates. Moist mucous membranes. NECK: Normal range of motion, supple without lymphadenopathy LUNGS: Breath sounds clear to auscultation bilaterally and equal. No wheezes rales or rhonchi. HEART: tachycardic, Regular rhythm without murmurs ABDOMEN: Soft, normoactive bowel sounds. No guarding, no rebound. Suprapubic TTP. EXTREMITIES: Normal range of motion, no pitting or edema. No cyanosis. NEUROLOGICAL: Cranial nerves grossly intact. No gross focal motor or sensory deficits appreciated. PSYCH: Normal mood, very anxious affect SKIN: Warm, Dry, normal turgor, no rashes or lesions noted. Course - Re-evaluation Re-evalutation: 12/07/16 16:48 Called to evaluate pt in room for possible seizure like activity. Pt alert and conversant, not post-ictal, states pain is still present but somewhat better after the medications. I have seen no seizure activity to this point in the ER. 12/07/16 19:22 Patient reexamined. She states that she is feeling much better after the pain medicine. She has had no further seizure-like episodes. We discussed her ultrasound results and her blood work. Both of these have confirmed that she has demise and a missed . She states that she saw OB Thursday and they discussed the option of medication vs expectent management vs D&C, and she has a follow up appointment on Thursday at 1300 for re-evaluation. She was discharged with [place] prescription 3 days ago, but states that she did not have it filled, and she has lost the prescription. Will refill her pain medication this time, although did have long discussion about narcotic medications. She will follow up OB on Thursday as scheduled. We discussed return precautions to include heavy bleeding or fevers. She and her family are very comfortable with this plan, and all questions answered. - Vital Signs Vital signs: Temp Pulse Resp BP Pulse Ox 97.9 F 61 17 110/74 97 12/07/16 19:51 12/07/16 19:51 12/07/16 19:51 12/07/16 19:51 12/07/16 19:51 - Laboratory Result Diagrams: 12/07/16 15:30 12/07/16 15:30 Laboratory results interpreted by me: 12/07/16 12/07/16 12/07/16 15:30 15:30 16:55 Hgb 11.8 L Sodium 136.9 L Glucose 73 L Beta HCG, Quant 79733.00 H Ur Leukocyte Esterase TRACE H Discharge - Discharge Clinical Impression: Missed with demise before 20 completed weeks of gestation, Seizure-like activity Condition: Stable Disposition: HOME, SELF-CARE Additional Instructions: Miscarriage Impending You have been evaluated for a miscarriage. At this time, the fetus has stopped growing. A miscarriage occurs when the fetus is abnormal. There is no medicine or treatment to prevent it. If bleeding is not severe, and if your pain can be controlled with medicine, you could complete the miscarriage at home. If that's not practical, or if the miscarriage doesn't progress spontaneously, we will arrange for a D&C procedure. You should rest in bed. Do not douche or have sex for at least a week, or until OK'd by the doctor. If you believe you've passed the fetus, collect it in a zip-lock plastic bag. Be sure to follow up with your doctor. Call the doctor or return for re- examination if there is an increase in bleeding or cramping, extreme weakness, fainting, fever greater than 100.4, or passage of tissue. Follow up as scheduled with OB Thursday at 1300. Prescriptions: Hydrocodone/Acetaminophen [[place] 5-325 mg Tablet] 1 tab PO Q6H PRN #15 tablet PRN Reason: For Pain
[2016-12-07 16:24] LABS: ABSOLUTE LYMPHOCYTES (AUTO) 2.9 10^3/uL (0.5-4.7); ABSOLUTE MONOCYTES (AUTO) 0.8 10^3/uL (0.1-1.4); BASOPHILS % (AUTO) 0.3 % (0-2); EOSINOPHILS % (AUTO) 0.4 % (0-6); HEMATOCRIT 36.2 % (36.0-47.0); HEMOGLOBIN 11.8 g/dL (12.0-15.5); HGB HCT DIFFERENCE -0.8; LYMPHOCYTES % (AUTO) 29.5 % (13-45); MEAN CORPUSCULAR HEMOGLOBIN 30.3 pg (27.0-33.4); MEAN CORPUSCULAR HGB CONC 32.7 g/dL (32.0-36.0); MEAN CORPUSCULAR VOLUME 93 fl (80-97); RED BLOOD COUNT 3.91 10^6/uL (3.72-5.28); RED CELL DISTRIBUTION WIDTH 13.8 % (11.5-14.0); SEGMENTED NEUTROPHILS % (AUTO) 61.8 % (42-78); WHITE BLOOD COUNT 9.8 10^3/uL (4.0-10.5)
[2016-12-07 16:44] LABS: ALANINE AMINOTRANSFERASE 19 U/L (9-52); ALBUMIN 4.4 g/dL (3.5-5.0); ALKALINE PHOSPHATASE 42 U/L (38-126); ANION GAP 12 (5-19); ASPARTATE AMINO TRANSFERASE 20 U/L (14-36); BILIRUBIN,DIRECT 0.3 mg/dL (0.0-0.4); BILIRUBIN,TOTAL 0.7 mg/dL (0.2-1.3); BLOOD UREA NITROGEN 12 mg/dL (7-20); CALCIUM 9.9 mg/dL (8.4-10.2); CARBON DIOXIDE 24 mmol/L (22-30); CHLORIDE 101 mmol/L (98-107); CREATININE RESULT 0.68 mg/dL (0.52-1.25); GLUCOSE 73 mg/dL (75-110); POTASSIUM 4.1 mmol/L (3.6-5.0); SODIUM 136.9 mmol/L (137-145); TOTAL PROTEIN 7.6 g/dL (6.3-8.2)
[2016-12-07] MEDS ORDERED: OXYCODONE-ACETAMINOPHEN 5-325 MG TABLET PO ONE (16:45)
[2016-12-07 19:24] LABS: APPEARANCE,URINE CLEAR; BILIRUBIN,URINE NEGATIVE (NEGATIVE); GLUCOSE, URINE NEGATIVE (NEGATIVE); KETONES,URINE NEGATIVE (NEGATIVE); LEUKOCYTE ESTERASE,URINE TRACE (NEGATIVE); NITRITE,URINE NEGATIVE (NEGATIVE); PROTEIN,URINE NEGATIVE (NEGATIVE); URINE SPECIFIC GRAVITY 1.008; UROBILINOGEN,URINE NEGATIVE mg/dL (<2.0)
[2016-12-07 20:02] VITALS: BP 110/74
[2016-12-07 20:21] LABS: URINE BARBITURATES SCREEN NEGATIVE; URINE METHADONE SCREEN NEGATIVE; URINE OPIATES LOW NEGATIVE; URINE PHENCYCLIDINE SCREEN NEGATIVE
== END 2016-12-07 19:51 | disposition home or self-care (01) ==
LOC: ER 14:36
DX: O02.1 Missed abortion (principal); R56.9 Unspecified convulsions; R10.2 Pelvic and perineal pain; R10.9 Unspecified abdominal pain; R10.30 Lower abdominal pain, unspecified
CPT/HCPCS: 99284; 96361; 96374; 36415; 84702; 85025; 80053; 81001; 80307; 76817; J3490; J2060; J7030

== ENCOUNTER 2016-12-19 05:20 | Emergency (ER) | payer MEDICAID ==
[2016-12-19 06:22] LABS: HEMATOCRIT 34.7 % (36.0-47.0); HEMOGLOBIN 11.4 g/dL (12.0-15.5); HGB HCT DIFFERENCE -0.5; MEAN CORPUSCULAR HEMOGLOBIN 31.3 pg (27.0-33.4); MEAN CORPUSCULAR HGB CONC 32.9 g/dL (32.0-36.0); MEAN CORPUSCULAR VOLUME 95 fl (80-97); RED BLOOD COUNT 3.64 10^6/uL (3.72-5.28); RED CELL DISTRIBUTION WIDTH 14.3 % (11.5-14.0); WHITE BLOOD COUNT 8.2 10^3/uL (4.0-10.5)
[2016-12-19 06:41] LABS: ALANINE AMINOTRANSFERASE 26 U/L (9-52); ALBUMIN 3.9 g/dL (3.5-5.0); ALKALINE PHOSPHATASE 37 U/L (38-126); ANION GAP 11 (5-19); ASPARTATE AMINO TRANSFERASE 22 U/L (14-36); BILIRUBIN,DIRECT 0.2 mg/dL (0.0-0.4); BILIRUBIN,TOTAL 0.6 mg/dL (0.2-1.3); BLOOD UREA NITROGEN 11 mg/dL (7-20); CALCIUM 9.6 mg/dL (8.4-10.2); CARBON DIOXIDE 20 mmol/L (22-30); CHLORIDE 108 mmol/L (98-107); CREATININE RESULT 0.57 mg/dL (0.52-1.25); GLUCOSE 100 mg/dL (75-110); POTASSIUM 4.4 mmol/L (3.6-5.0); SODIUM 139.3 mmol/L (137-145)
--- NOTE | 2016-12-19 07:00 | RADIOLOGY REPORT (SQ) ---
EXAM DESCRIPTION: U/S OB TRANSVAG W/DOPPLER COMPLETED DATE/TIME: 12/19/2016 6:40 am REASON FOR STUDY: vaginal bleeding COMPARISON: Ultrasound OB 12/07/2016 TECHNIQUE: Transvaginal static and realtime grayscale images acquired of the pelvis. Additional margie cted spectral and color Doppler images recorded. All images stored on PACs. bHCG: Not available. LIMITATIONS: None. FINDINGS: UTERUS: The uterus measures 11.7 x 6.4 x 5.3 cm. The endometrium is thickened and heterog eneous measuring 3.3 cm with internal flow on Doppler images. The previously described intrauterine gestational sac is no longer visualized. CERVICAL LENGTH: 3.0 cm. Closed. RIGHT ADNEXA: The right ovary measures 4.4 x 2.9 x 2.3 cm. Flow by Doppler was shown to the right ov carrol. LEFT ADNEXA: The left ovary measures 4.1 x 2.6 x 1.7 cm. Flow by Doppler was shown to the left ovary . FREE FLUID: None. IMPRESSION: The previously described intrauterine gestational sac is no longer visualized. Heteroge neous and thickened endometrium, worrisome for retained products of conception. Findings are suggest travis of incomplete . Trimester of : First - 0 to 13 weeks. TECHNICAL DOCUMENTATION: JOB ID: [id number] [employer] All Rights Reserved
--- NOTE | 2016-12-19 07:07 | ER Document Report ---
ED GI/ - General Mode of Arrival: Medic Information source: Patient TRAVEL OUTSIDE OF THE [place] IN LAST 30 DAYS: No - HPI Patient complains to provider of: Abdominal pain, Vaginal bleeding Onset: Other - 2 days ago Context: Other - See notes above Vaginal bleeding (Compared to normal period): Heavier Associated symptoms: Other - See note above <DENYS MARIE - Last Filed: 12/19/16 08:10> <JENNIFER HEATON - Last Filed: 12/19/16 10:23> - General Chief Complaint: Abdominal Pain Stated Complaint: POSSIBLE MISCARRIAGE Time Seen by Provider: 12/19/16 06:16 Notes: 21-year-old female that had a miscarriage 2 weeks ago when she was 9 weeks presents to the ED via EMS complaining of vaginal bleeding that started 2 days ago. Patient reports that the bleeding is heavier than her normal menstrual period. Patient explains that this morning she was having an episode of "excruciating" abdominal pain and reports that it felt like she was urinating on herself, but was bleeding. Patient denies dizziness, nausea, vomiting, or fever, but reports that she was having intermittent episodes of hot and cold flashes this morning. Patient reports that she has a follow-up appointment with OB on December 23, 2016. Patient denies being on any blood thinning medication. EMS reports that they saw "a small fetus" on the patient' s bedsheet at home. (DENYS MARIE) - Related Data Allergies/Adverse Reactions: No Known Allergies Allergy (Unverified 12/19/16 05:34) Past Medical History - General Information source: Patient - Social History Smoking Status: Current Every Day Smoker Chew tobacco use (# tins/day): No Frequency of alcohol use: None Drug Abuse: None Family History: Reviewed & Not Pertinent Patient has suicidal ideation: No Patient has homicidal ideation: No - Past Medical History Cardiac Medical History: Reports: Hx Hypertension Neurological Medical History: Reports: Hx Migraine, Hx Seizures - pseudo Endocrine Medical History: Reports: Hx Hypothyroidism Renal/ Medical History: Denies: Hx Peritoneal Dialysis GI Medical History: Denies: Hx Gastritis, Hx Gastroesophageal Reflux Disease, Hx Ulcer Psychiatric Medical History: Reports: Hx Anxiety - panic attacks - Immunizations Immunizations up to date: Yes Hx Diphtheria, Pertussis, Tetanus Vaccination: Yes <DENYS MARIE - Last Filed: 12/19/16 08:10> Review of Systems - Review of Systems Constitutional: See HPI, Other - hot and cold flashes. denies: Fever EENT: No symptoms reported Cardiovascular: No symptoms reported. denies: Dizziness Respiratory: No symptoms reported Gastrointestinal: See HPI, Abdominal pain. denies: Nausea, Vomiting Genitourinary: No symptoms reported Female Genitourinary: See HPI, Vaginal bleeding Musculoskeletal: No symptoms reported Skin: No symptoms reported Hematologic/Lymphatic: No symptoms reported Neurological/Psychological: No symptoms reported -: Yes All other systems reviewed and negative <DENYS MARIE - Last Filed: 12/19/16 08:10> Physical Exam <DENYS MARIE - Last Filed: 12/19/16 08:10> <JENNIFER HEATON - Last Filed: 12/19/16 10:23> - Vital signs Vitals: Temp Pulse Resp BP Pulse Ox 98.1 F 90 16 119/73 100 12/19/16 05:31 12/19/16 05:31 12/19/16 05:31 12/19/16 05:31 12/19/16 05:31 - Notes Notes: GENERAL: Alert, interacts well. No acute distress. HEAD: Normocephalic, atraumatic. EYES: Pupils equal, round, and reactive to light. Extraocular movements intact. ENT: Oral mucosa moist, tongue midline. NECK: Full range of motion. Supple. Trachea midline. LUNGS: Clear to auscultation bilaterally, no wheezes, rales, or rhonchi. No respiratory distress. HEART: Regular rate and rhythm. No murmurs, gallops, or rubs. ABDOMEN: Soft. Non-distended. Bowel sounds present in all 4 quadrants. Tenderness to palpation of the lower abdomen with small amounts of guarding. Uterus was not able to be palpated. GENITOURINARY: Large amounts of clot with moderate active bleeding noted. Cervix is open with small amounts of placental tissue that was removed from vaginal vault. EXTREMITIES: Moves all 4 extremities spontaneously. No edema, radial and dorsalis pedis pulses 2/4 bilaterally. No cyanosis. NEUROLOGICAL: Alert and oriented x3. Normal speech. Biceps and patellar DTRs 2+ bilaterally. PSYCH: Normal affect, normal mood. SKIN: Warm, dry, normal turgor. No rashes or lesions noted. (DENYS MARIE) Course - Laboratory Result Diagrams: 12/19/16 06:00 12/19/16 06:00 <DENYS MARIE - Last Filed: 12/19/16 08:10> - Laboratory Result Diagrams: 12/19/16 06:00 12/19/16 06:00 <JENNIFER HEATON - Last Filed: 12/19/16 10:23> - Re-evaluation Re-evalutation: 12/19/16 08:06 CBC shows mild anemia with hemoglobin 11.4, CO2 slightly low at 20, chemistries otherwise unremarkable, quantitative beta-hCG is 2640.4, transvaginal ultrasound no longer shows the fetus but it does show heterogeneous contents within the uterus concerning for possible retained products of conception and incomplete miscarriage. Discussed with patient that as she just started passing products of conception today there is no indication for D&C or medications to aid in further passage of products of conception at this time. Patient was warned of signs of infection including fevers, increasing abdominal pain, foul-smelling vaginal discharge. 12/19/16 08:07 She has a follow-up appointment in [place] with her [employer] on the sixth. Discussed the findings with her mother and stepfather as well. Patient will return for clots bigger than the size of her palm, using more than 1 pad an hour , dizziness or any new or concerning symptoms. Patient was given a prescription for 2 days of Goode to help with the pain. (JENNIFER HEATON) - Vital Signs Vital signs: Temp Pulse Resp BP Pulse Ox 98.7 F 78 18 121/80 97 12/19/16 08:55 12/19/16 08:55 12/19/16 08:55 12/19/16 08:55 12/19/16 08:55 - Laboratory Laboratory results interpreted by me: 12/19/16 12/19/16 06:00 06:00 RBC 3.64 L Hgb 11.4 L Hct 34.7 L RDW 14.3 H Chloride 108 H Carbon Dioxide 20 L Alkaline Phosphatase 37 L Beta HCG, Quant 2640.40 H Discharge <DENYS MARIE - Last Filed: 12/19/16 08:10> <JENNIFER HEATON - Last Filed: 12/19/16 10:23> - Discharge Clinical Impression: Incomplete miscarriage Condition: Stable Disposition: HOME, SELF-CARE Additional Instructions: Miscarriage You have had a miscarriage (medically called a "spontaneous "). The miscarriage occurred because the fetus did not develop normally. There is nothing you did to cause it, and nothing you could have done to prevent it. About one in four ends in miscarriage. You should rest in bed for two or three days. As there is some risk of infection of the uterus, you should not have intercourse for one week (or until okayed by your physician). Do not use tampons. You might not have a period for six to eight weeks. You should not become again for at least three months -- the uterus requires time to get back to normal. Call the doctor or return for re-examination if there is heavy or persistent vaginal bleeding (more than 1 pad per hour), fever, foul discharge, continued cramping pains, clots larger than your palm, or worsening abdominal pain. Prescriptions: Hydrocodone/Acetaminophen [Goode 5-325 mg Tablet] 1 - 2 tab PO Q4HP PRN #20 tab PRN Reason: Forms: Return to Work Scribe Attestation: 12/19/16 10:23 I personally performed the services described in the documentation, reviewed and edited the documentation which was dictated to the scribe in my presence, and it accurately records my words and actions. (JENNIFER HEATON) Scribe Documentation - Scribe Written by Laura:: Laura Maravilla, 12/19/2016 0745 acting as scribe for :: Josse <DENYS MARIE - Last Filed: 12/19/16 08:10>
[2016-12-19] MEDS ORDERED: HYDROCODONE/ACETAMINOPHEN 5-325 MG TABLET PO ONE (08:06)
[2016-12-19 08:56] VITALS: BP 121/80
== END 2016-12-19 08:56 | disposition home or self-care (01) ==
LOC: ER 05:20
DX: O03.4 Incomplete spontaneous abortion without complication (principal); R10.9 Unspecified abdominal pain; Z3A.09 9 weeks gestation of pregnancy; F17.200 Nicotine dependence, unspecified, uncomplicated
CPT/HCPCS: 36415; 76817; 80053; 84702; 85027; 93976; 99284

== ENCOUNTER 2017-04-10 12:22 | Emergency (ER) | payer MEDICAID ==
[2017-04-10 12:28] VITALS: BP 128/84
[2017-04-10] MEDS ORDERED: LIDOCAINE 2% VISCOUS SOLN 20 ML UDCUP PO ONE (12:56)
--- NOTE | 2017-04-10 12:56 | ER Document Report ---
HPI - HPI Pain Level: 5 Notes: Patient is a 21-year-old female with a history of poor dentition who presents the ED complaining of right lower molar pain to #32 times a couple days. Patient is a the pain radiates into her right jaw. She has not noticed any obvious abscess or discharge. She is still able to eat and drink, but does have pain associated. She has been using some [id number] meds with minimal relief. Patient states that she does not have any insurance. Denies any headache, fever, neck pain, URI, sore throat, chest pain, palpitations, syncope, cough, shortness of breath, wheeze, dyspnea, abdominal pain, nausea/ vomiting/diarrhea, urinary retention, dysuria, or rash. - ROS Notes: REVIEW OF SYSTEMS: CONSTITUTIONAL : Denies fever, chills, or sweats. Denies recent illness. EENT: see hpi CARDIOVASCULAR: Denies chest pain. Denies palpitations or racing or irregular heart beat. Denies ankle edema. RESPIRATORY: Denies cough, cold, or chest congestion. Denies shortness of breath, difficulty breathing, or wheezing. GASTROINTESTINAL: Denies abdominal pain or distention. Denies nausea, vomiting , or diarrhea. Denies blood in vomitus, stools, or per rectum. Denies black, tarry stools. Denies constipation. GENITOURINARY: Denies difficulty urinating, painful urination, burning, frequency, blood in urine, or discharge. MUSCULOSKELETAL: Denies back or neck pain or stiffness. Denies joint pain or swelling. SKIN: Denies rash, lesions or sores. NEUROLOGICAL: Denies confusion or altered mental status. Denies passing out or loss of consciousness. Denies dizziness or lightheadedness. Denies headache. Denies weakness or paralysis or loss of use of either side. Denies problems with gait or speech. Denies sensory loss, numbness, or tingling. ALL OTHER SYSTEMS REVIEWED AND NEGATIVE. Dictation was performed using [employer] voice recognition software - CARDIOVASCULAR Cardiovascular: DENIES: Chest pain - REPRODUCTIVE Reproductive: REPORTS: : - DERM Skin Color: Normal Past Medical History - Social History Smoking Status: Current Every Day Smoker Frequency of alcohol use: None Drug Abuse: None Family History: Reviewed & Not Pertinent - Past Medical History Cardiac Medical History: Reports: Hx Hypertension Neurological Medical History: Reports: Hx Migraine, Hx Seizures - pseudo Endocrine Medical History: Reports: Hx Hypothyroidism Renal/ Medical History: Denies: Hx Peritoneal Dialysis GI Medical History: Denies: Hx Gastritis, Hx Gastroesophageal Reflux Disease, Hx Ulcer Psychiatric Medical History: Reports: Hx Anxiety - panic attacks Surgical Hx: Negative - Immunizations Immunizations up to date: Yes Hx Diphtheria, Pertussis, Tetanus Vaccination: Yes Vertical Provider Document - CONSTITUTIONAL Agree With Documented VS: Yes Notes: PHYSICAL EXAMINATION: GENERAL: Well-appearing, well-nourished and in no acute distress. HEAD: Atraumatic, normocephalic. EYES: Pupils equal round and reactive to light, extraocular movements intact, sclera anicteric, conjunctiva are normal. ENT: EAC clear b/l. TM's intact b/l without erythema, fluid, or perforation. Nares patent and without discharge. oropharynx clear without exudates. No tonsilar hypertrophy or erythema. Moist mucous membranes. No sinus tenderness. Uvula midline. No palatine shift. No tongue protrusion. No respiratory compromise. Mouth: Poor dentition. + large decay and mild gingivitis. No obvious abscess or discharge noted. No facial swelling. + tenderness to tooth #32. NECK: Normal range of motion, supple without lymphadenopathy. No rigidity/ meningismus. LUNGS: Breath sounds clear to auscultation bilaterally and equal. No wheezes rales or rhonchi. HEART: Regular rate and rhythm without murmurs, rubs, gallops. NEUROLOGICAL: Cranial nerves grossly intact. Normal speech, normal gait. Normal sensory, motor exams PSYCH: Normal mood, normal affect. SKIN: Warm, Dry, normal turgor, no rashes or lesions noted. - INFECTION CONTROL TRAVEL OUTSIDE OF THE [place] IN LAST 30 DAYS: No - RESPIRATORY O2 Sat by Pulse Oximetry: 100 Course - Re-evaluation Re-evalutation: 04/10/17 12:54 Patient is an afebrile, well-hydrated, 21-year-old female who presents the ED with dental pain, suspect infection versus nerve root etiology. Vitals are stable. PE otherwise unremarkable. Low suspicion for any meningitis, sepsis, peritonsillar/pharyngeal abscess, respiratory compromise, Jimy's, temporal arteritis, or other emergent systemic condition at this time. Patient is aware this condition can change from initial presentation and she needs to monitor symptoms closely. I will send her home with a prescription for penicillin to take as directed along with viscous lidocaine to use as directed. Conservative measures otherwise for symptoms. Call to schedule an appointment with a dentist for further evaluation and management. Recheck with your PCM this week as well. Return to the ED with any worsening/concerning symptoms otherwise as reviewed in discharge. Patient is in agreement. - Vital Signs Vital signs: Temp Pulse Resp BP Pulse Ox 98.6 F 98 15 128/84 H 100 04/10/17 12:26 04/10/17 12:04/10/17 12:04/10/17 12:04/10/17 12:26 Discharge - Discharge Clinical Impression: Toothache Condition: Stable Disposition: HOME, SELF-CARE Instructions: Toothache ([facility], Penicillin V K ([facility]) Additional Instructions: [place] and floss twice daily Maintain fluid intake Take antibiotics as directed Mouthwash, salt water gargles, peroxide rinse as needed Tylenol/ibuprofen as needed Recheck with PCM this week Call today/tomorrow and schedule an appointment with your dentist for further evaluation ([facility]) Return to the ED with any worsening symptoms and/or development of fever, headache, facial swelling, swelling of lips/tongue/throat, trouble swallowing, drooling, hoarseness, neck pain/stiffness, chest pain, palpitations, syncope, shortness of breath, trouble breathing, abdominal pain, n/v/d, numbness/tingling , or other worsening symptoms that are concerning to you. Prescriptions: Penicillin V Potassium [Penicillin Vk 500 mg Tablet] 500 mg PO BID #20 tablet Forms: Elevated Blood Pressure, Smoking Cessation Education Referrals: [facility] [Provider Group] - Follow up in 3-5 days
== END 2017-04-10 13:10 | disposition home or self-care (01) ==
LOC: ER 12:22
DX: K02.9 Dental caries, unspecified (principal); K05.10 Chronic gingivitis, plaque induced; K08.89 Other specified disorders of teeth and supporting structures; F17.200 Nicotine dependence, unspecified, uncomplicated; I10 Essential (primary) hypertension
CPT/HCPCS: 99282; J3490

== ENCOUNTER 2017-07-04 12:34 | Emergency (ER) | payer MEDICAID ==
[2017-07-04 12:46] VITALS: BP 115/70
--- NOTE | 2017-07-04 12:56 | ER Document Report ---
ED Medical Screen (RME) - General Chief Complaint: Pelvic Pain Stated Complaint: PELVIC PAIN Time Seen by Provider: 07/04/17 12:50 Notes: This 21-year-old female patient with long history of well-documented chronic pain issues, comes emergency room complaining of pelvic pain for 3 weeks. Last menstrual period was about 06/01/2017, there is possibility of . I have greeted and performed a rapid initial assessment of this patient. A comprehensive ED assessment and evaluation of the patient, analysis of test results and completion of the medical decision making process will be conducted by additional ED providers. TRAVEL OUTSIDE OF THE [place] IN LAST 30 DAYS: No - Related Data Allergies/Adverse Reactions: morphine Adverse Reaction (Verified 07/04/17 12:39) VOMITING Home Medications: Current Home Medications No Home Medications 07/04/17 [History] Past Medical History - General Last Menstrual Period: 06/04/17 - Social History Chew tobacco use (# tins/day): No Frequency of alcohol use: None Drug Abuse: None - Past Medical History Cardiac Medical History: Reports: Hx Hypertension Neurological Medical History: Reports: Hx Migraine, Hx Seizures - pseudo Endocrine Medical History: Reports: Hx Hypothyroidism Renal/ Medical History: Denies: Hx Peritoneal Dialysis GI Medical History: Denies: Hx Gastritis, Hx Gastroesophageal Reflux Disease, Hx Ulcer Psychiatric Medical History: Reports: Hx Anxiety - panic attacks - Immunizations Immunizations up to date: Yes Hx Diphtheria, Pertussis, Tetanus Vaccination: Yes Physical Exam - Vital signs Vitals: Temp Pulse Resp BP Pulse Ox 98.5 F 115 H 21 H 115/70 100 07/04/17 12:45 07/04/17 12:45 07/04/17 12:45 07/04/17 12:45 07/04/17 12:45 Course - Vital Signs Vital signs: Temp Pulse Resp BP Pulse Ox 98.5 F 115 H 21 H 115/70 100 07/04/17 12:45 07/04/17 12:45 07/04/17 12:45 07/04/17 12:45 07/04/17 12:45
[2017-07-04 13:08] LABS: APPEARANCE,URINE SLIGHTLY-CLOUDY; BILIRUBIN,URINE NEGATIVE (NEGATIVE); GLUCOSE, URINE NEGATIVE (NEGATIVE); KETONES,URINE NEGATIVE (NEGATIVE); LEUKOCYTE ESTERASE,URINE TRACE (NEGATIVE); NITRITE,URINE NEGATIVE (NEGATIVE); PROTEIN,URINE NEGATIVE (NEGATIVE); URINE SPECIFIC GRAVITY 1.027; UROBILINOGEN,URINE NEGATIVE mg/dL (<2.0)
--- NOTE | 2017-07-04 13:55 | ER Document Report ---
ED General - General Chief Complaint: Pelvic Pain Stated Complaint: PELVIC PAIN Time Seen by Provider: 07/04/17 12:50 Mode of Arrival: Ambulatory Information source: Patient Notes: Patient presents emergency department with complaints of pelvic pain. Patient reports she has sharp pelvic pain that comes and goes. She reports that the pelvic pain occurred the other day and lasted all day. Denies pain today. She reports she was recently incarcerated and a told her she had a positive test but also had a negative test. She was instructed to follow-up with the health department but she has not done that yet. Patient reports when she sleeps on her stomach she has cramps. She denies vaginal discharge she denies pain with void. She denies fever vomiting diarrhea. Patient just wants to know if she is . Patient is smiling, laughing, no distress. TRAVEL OUTSIDE OF THE [place] IN LAST 30 DAYS: No - HPI Onset: Other Onset/Duration: Better Quality of pain: Sharp Pain Level: Denies - no pain today Associated symptoms: None Exacerbated by: Denies Relieved by: Denies Similar symptoms previously: Yes Recently seen / treated by doctor: No - Related Data Allergies/Adverse Reactions: morphine Adverse Reaction (Verified 07/04/17 12:39) VOMITING Home Medications: Current Home Medications No Home Medications 07/04/17 [History] Past Medical History - General Information source: Patient Last Menstrual Period: 06/04/17 reports spotting - Social History Smoking Status: Former Smoker Cigarette use (# per day): No Chew tobacco use (# tins/day): No Frequency of alcohol use: None Drug Abuse: None Lives with: Family Family History: Reviewed & Not Pertinent Patient has suicidal ideation: No Patient has homicidal ideation: No - Past Medical History Cardiac Medical History: Reports: Hx Hypertension Neurological Medical History: Reports: Hx Migraine, Hx Seizures - pseudo Endocrine Medical History: Reports: Hx Hypothyroidism Renal/ Medical History: Denies: Hx Peritoneal Dialysis GI Medical History: Denies: Hx Gastritis, Hx Gastroesophageal Reflux Disease, Hx Ulcer Psychiatric Medical History: Reports: Hx Anxiety - panic attacks Surgical Hx: Negative - Immunizations Immunizations up to date: Yes Hx Diphtheria, Pertussis, Tetanus Vaccination: Yes Review of Systems - Review of Systems Notes: Review HPI for review of systems., All other systems negative Physical Exam - Vital signs Vitals: Temp Pulse Resp BP Pulse Ox 98.5 F 115 H 21 H 115/70 100 07/04/17 12:45 07/04/17 12:45 07/04/17 12:45 07/04/17 12:45 07/04/17 12:45 - Notes Notes: PHYSICAL EXAMINATION: GENERAL: Well-appearing and in no acute distress HEAD: Atraumatic, normocephalic. EYES: Pupils equal round, extraocular movements intact, sclera anicteric, conjunctiva are normal. ENT: nares patent, Moist mucous membranes. NECK: Normal range of motion, supple without lymphadenopathy LUNGS: CTAB and equal. No wheezes rales or rhonchi. HEART: Regular rate and rhythm without murmurs ABDOMEN: Soft, no tenderness. no pain on palpation, No guarding, no rebound EXTREMITIES: Normal range of motion, no pitting edema. No cyanosis. NEUROLOGICAL: Cranial nerves grossly intact. Normal sensory/motor exams. PSYCH: Normal mood, normal affect. SKIN: Warm, Dry, normal turgor, no rashes or lesions noted Course - Re-evaluation Re-evalutation: 07/04/17 13:55 Patient was instructed on negative urine test. . Will repeat test-serum. Patient denies pain at this time happy smiling laughing no distress. 07/04/17 14:40 Patient instructed on negative test encouraged to follow-up with the health department patient in no distress laughing happy smiling - Vital Signs Vital signs: Temp Pulse Resp BP Pulse Ox 98.5 F 115 H 21 H 115/70 100 07/04/17 12:45 07/04/17 12:45 07/04/17 12:45 07/04/17 12:45 07/04/17 12:45 - Laboratory Laboratory results interpreted by me: 07/04/17 12:40 Ur Leukocyte Esterase TRACE H Discharge - Discharge Clinical Impression: Pelvic pain Condition: Stable Disposition: HOME, SELF-CARE Instructions: [facility] [place] Additional Instructions: *You have been evaluated for pelvic pain *Your test was negative *Follow up with the health department for recheck within one week *Return to ED for worsening condition, changes, needs *Return to ED if not better in 24 hours
== END 2017-07-04 14:38 | disposition home or self-care (01) ==
LOC: ER 12:34
DX: R10.2 Pelvic and perineal pain (principal); I10 Essential (primary) hypertension; Z32.02 Encounter for pregnancy test, result negative; Z87.891 Personal history of nicotine dependence
CPT/HCPCS: 36415; 81001; 81025; 84702; 84703; 99284

== ENCOUNTER 2017-08-04 15:44 | Emergency (ER) | payer MEDICAID ==
[2017-08-04] MEDS ORDERED: LEVETIRACETAM 1000 MG/NACL-ISO 1,000 MG/100 ML RTUPB IV ONE (16:04)
--- NOTE | 2017-08-04 16:09 | ER Document Report ---
ED Seizure - General Chief Complaint: Probable Seizure Stated Complaint: POSSIBLE SEIZURE Time Seen by Provider: 08/04/17 15:52 Mode of Arrival: Medic - HPI Notes: 21-year-old female with history of seizure disorder she states is anxiety related 3 of depression presents after having 3 tonic-clonic seizures at home witnessed by her mother. She received Versed after EMS arrived for a tonic- clonic seizure. Patient states due to loss of insurance she has not had her Keppra Depakote or anxiety medications for approximately 4 months. Her last seizure was approximately 3 or 4 months ago. Report estimates seizures to last approximately a minute to 2 minutes and apparently the patient did not clear between the seizures. She was slightly postictal per EMS. Patient reports some chest pain. Continues to report anxiety. Has had other undue stressors including recent diagnosis of her mother with terminal cancer. She has had no recent illness otherwise including vomiting diarrhea, fever cough or cold symptoms, shortness of breath. She has some mild headache. Denies neurologic change otherwise such as focal weakness numbness tingling or visual change. - Related Data Allergies/Adverse Reactions: morphine Adverse Reaction (Verified 07/04/17 12:39) VOMITING Past Medical History - Social History Smoking Status: Unknown if Ever Smoked Drug Abuse: None Family History: Reviewed & Not Pertinent - Past Medical History Cardiac Medical History: Reports: Hx Hypertension Neurological Medical History: Reports: Hx Migraine, Hx Seizures - pseudo Endocrine Medical History: Reports: Hx Hypothyroidism Renal/ Medical History: Denies: Hx Peritoneal Dialysis GI Medical History: Denies: Hx Gastritis, Hx Gastroesophageal Reflux Disease, Hx Ulcer Psychiatric Medical History: Reports: Hx Anxiety - panic attacks - Immunizations Immunizations up to date: Yes Hx Diphtheria, Pertussis, Tetanus Vaccination: Yes Review of Systems - Review of Systems -: Yes All other systems reviewed and negative Physical Exam - Vital signs Vitals: Temp 98.4 F 08/04/17 15:56 Notes: Please see nurse's notes - Notes Notes: GENERAL: VS as per nursing doc. Well-appearing, well-nourished and in no acute distress. HEAD: Atraumatic, normocephalic. EYES: Pupils equal round and reactive to light, extraocular movements intact, sclera anicteric, no conjunctival injection or discharge. ENT: Nares patent, oropharynx clear without exudates. Somewhat dry mucous membranes. NECK: Normal range of motion, supple, no carotid bruits. LUNGS: Breath sounds clear to auscultation bilaterally and equal. No wheezes rales or rhonchi. HEART: Normal S1S2. Regular rate and rhythm without murmurs. Equal peripheral pulses. Mild anterior chest tenderness palpation ABDOMEN: Soft, non-tender. EXTREMITIES: No significant range of motion limitations. No edema. NEUROLOGICAL: GCS 15, Cranial nerves II-XII intact. Normal visual aparicio. Normal speech without aphasia. No pronator drift. 5/5 RUE strength, 5/5 RLE strength, 5/5 LUE strength, 5/5 LLE strength. No cerebellar abnormalities including normal finger-nose testing. Plantar reflexes downgoing. PSYCH: Normal mood, normal affect. SKIN: Warm, Dry, no cyanosis, Cap refill < 2 sec. Course - Re-evaluation Re-evalutation: 08/04/17 18:54 Patient has completely cleared. She actually seems a little elated at this point. I asked her prior to discussing findings with her in front of her mother and she stated it was fine to go through the results. She has no further pain. She has had no seizure activity here. I discussed with her the drug screen and she did admit despite stating initially she had no drug use to the cocaine and marijuana use. She did receive Versed so this could cause the benzodiazepine use but she did not deny other. Obviously, benzo withdrawal could cause some of this as well. She states she will stay clean. She would like to get back on the Keppra. [facility] until she can get back in with a neurologist for further treatment. She did not want to use the Depakote due to the symptoms it caused. She understands warning signs to watch for and will have family with her in attendance. 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 Please call tomorrow to arrange follow-up. Ensure you are avoiding substances that would be bad for you. May use the prescribed medications to see if this helps with anxiety. Take the Keppra 500 mg twice daily as you had prior. Prescriptions: Hydroxyzine Pamoate [Vistaril 25 mg Capsule] 25 mg PO Q6HP PRN #15 capsule PRN Reason: For Anxiety Levetiracetam [Keppra 500 mg Tablet] 500 mg PO Q12 #30 tablet Referrals: [facility] [Provider Group] - Follow up in 3-5 days [facility] [Provider Group] - Follow up in 3-5 days
[2017-08-04] MEDS ORDERED: NORMAL SALINE 1000 ML 1,000 ML IV ONE (16:16)
[2017-08-04 16:17] LABS: ABSOLUTE LYMPHOCYTES (AUTO) 1.6 10^3/uL (0.5-4.7); ABSOLUTE MONOCYTES (AUTO) 0.3 10^3/uL (0.1-1.4); ABSOLUTE NEUT (AUTO) 2.6 10^3/uL (1.7-8.2); BASOPHILS % (AUTO) 0.5 % (0-2); EOSINOPHILS % (AUTO) 0.5 % (0-6); HEMATOCRIT 36.5 % (36.0-47.0); HEMOGLOBIN 12.1 g/dL (12.0-15.5); LYMPHOCYTES % (AUTO) 35.8 % (13-45); MEAN CORPUSCULAR HEMOGLOBIN 30.5 pg (27.0-33.4); MEAN CORPUSCULAR HGB CONC 33.3 g/dL (32.0-36.0); MEAN CORPUSCULAR VOLUME 92 fl (80-97); MONOCYTES % (AUTO) 5.7 % (3-13); PLATELET COUNT 249 10^3/uL (150-450); RED BLOOD COUNT 3.98 10^6/uL (3.72-5.28); RED CELL DISTRIBUTION WIDTH 13.1 % (11.5-14.0); SEGMENTED NEUTROPHILS % (AUTO) 57.5 % (42-78); TOTAL CELLS COUNTED % (AUTO) 100 %; WHITE BLOOD COUNT 4.5 10^3/uL (4.0-10.5)
--- NOTE | 2017-08-04 16:28 | RADIOLOGY REPORT (SQ) ---
EXAM DESCRIPTION: CHEST SINGLE VIEW COMPLETED DATE/TIME: 08/04/2017 4:17 pm REASON FOR STUDY: CP COMPARISON: 07/10/[address] chest 09/05/2015 EXAM PARAMETERS: NUMBER OF VIEWS: One view. TECHNIQUE: Single frontal radiographic view of the chest acquired. RADIATION DOSE: NA LIMITATIONS: None. FINDINGS: LUNGS AND PLEURA: No opacities, masses or pneumothorax. No pleural effusion. MEDIASTINUM AND HILAR STRUCTURES: No masses. Contour normal. HEART AND VASCULAR STRUCTURES: Heart normal in size. Normal vasculature. BONES: No acute findings. HARDWARE: None in the chest. OTHER: No other significant finding. IMPRESSION: NO ACUTE RADIOGRAPHIC FINDING IN THE CHEST. TECHNICAL DOCUMENTATION: JOB ID: [id number] [employer]- All Rights Reserved
[2017-08-04 16:42] LABS: ANION GAP 7 (5-19); BLOOD UREA NITROGEN 16 mg/dL (7-20); CALCIUM 9.8 mg/dL (8.4-10.2); CARBON DIOXIDE 28 mmol/L (22-30); CHLORIDE 107 mmol/L (98-107); MAGNESIUM 1.8 mg/dL (1.6-2.3)
[2017-08-04 16:44] LABS: GLUCOSE 90 mg/dL (75-110); POTASSIUM 3.8 mmol/L (3.6-5.0)
--- NOTE | 2017-08-04 17:07 | RADIOLOGY REPORT (SQ) ---
EXAM DESCRIPTION: CT HEAD WITHOUT COMPLETED DATE/TIME: 08/04/2017 4:44 pm REASON FOR STUDY: Headache, seizure COMPARISON: CT brain 09/05/2015, 08/10/2015, 07/21/2015, 05/28/2015 TECHNIQUE: Axial images acquired through the brain without intravenous contrast. Images reviewed wi th bone, brain and subdural windows. Images stored on PACS. All CT scanners at this facility use dose modulation, iterative reconstruction, and/or weight based d osing when appropriate to reduce radiation dose to as low as reasonably achievable (ALARA). [facility]: Dose Right [facility]: CareDose [facility]: Dose Right [facility]: Teradose 4D [facility]: Pounce RADIATION DOSE: CT Rad equipment meets quality standard of care and radiation dose reduction techniq ues were employed. CTDIvol: 64.6 mGy. DLP: 1292 mGy-cm. mGy. LIMITATIONS: None. FINDINGS: VENTRICLES: Normal size and contour. CEREBRUM: No masses. No hemorrhage. No midline shift. No evidence for acute infarction. Normal gra y/white matter differentiation. No areas of low density in the white matter. CEREBELLUM: No masses. No hemorrhage. No alteration of density. No evidence for acute infarction. EXTRAAXIAL SPACES: No fluid collections. No masses. ORBITS AND GLOBE: No intra- or extraconal masses. Normal contour of globe without masses. CALVARIUM: No fracture. PARANASAL SINUSES: No fluid or mucosal thickening. SOFT TISSUES: No mass or hematoma. OTHER: No other significant finding. IMPRESSION: NORMAL BRAIN CT WITHOUT CONTRAST. EVIDENCE OF ACUTE STROKE: NO. COMMENT: Quality ID # [id number]: Final reports with documentation of one or more dose reduction techniques (e.g., Automated exposure control, adjustment of the mA and/or kV according to patient size, use of iterative reconstruction technique) TECHNICAL DOCUMENTATION: JOB ID: [id number] [employer]- All Rights Reserved
[2017-08-04 17:33] LABS: APPEARANCE,URINE CLOUDY; BILIRUBIN,URINE NEGATIVE (NEGATIVE); COLOR,URINE YELLOW; GLUCOSE, URINE NEGATIVE (NEGATIVE); KETONES,URINE NEGATIVE (NEGATIVE); LEUKOCYTE ESTERASE,URINE NEGATIVE (NEGATIVE); NITRITE,URINE NEGATIVE (NEGATIVE); PROTEIN,URINE NEGATIVE (NEGATIVE); URINE SPECIFIC GRAVITY 1.027
[2017-08-04 17:42] LABS: URINE AMPHETAMINES SCREEN NEGATIVE; URINE BARBITURATES SCREEN NEGATIVE; URINE BENZODIAZEPINES SCREEN UNCONFIRMED POSITIVE; URINE COCAINE SCREEN UNCONFIRMED POSITIVE; URINE MARIJUANA (THC) SCREEN UNCONFIRMED POSITIVE; URINE METHADONE SCREEN NEGATIVE; URINE PHENCYCLIDINE SCREEN NEGATIVE
[2017-08-04 19:33] VITALS: BP 110/74
--- NOTE | 2017-08-04 20:21 | EKG REPORT ---
SEVERITY:- OTHERWISE NORMAL ECG - SINUS TACHYCARDIA : Confirmed by: Edward Freeman 04-Aug-2017 20:20:31
== END 2017-08-04 19:32 | disposition home or self-care (01) ==
LOC: ER 15:44
DX: G40.909 Epilepsy, unspecified, not intractable, without status epilepticus (principal); F41.9 Anxiety disorder, unspecified; F32.9 Major depressive disorder, single episode, unspecified; F19.10 Other psychoactive substance abuse, uncomplicated
CPT/HCPCS: 93005; 99285; 96361; 96365; 36415; 83735; 84703; 85025; 80048; 81001; 80307; 71045; 70450; 93010; J7030; J1953

== ENCOUNTER 2018-07-20 14:23 | Emergency (ER) | payer SELFPAY ==
[2018-07-20] MEDS ORDERED: PROMETHAZINE HCL 25 MG TABLET PO ONE (15:29)
[2018-07-20] MEDS ORDERED: TRAMADOL HCL 50 MG TABLET PO ONE (15:29)
--- NOTE | 2018-07-20 15:34 | ER Document Report ---
ED Medical Screen (RME) - General Chief Complaint: Abdominal Cramping Stated Complaint: ABDOMINAL CRAMPS Time Seen by Provider: 07/20/18 15:23 Notes: Patient is complaining of lower midline abdominal pain and cramping as well as lower back pain that has been present since last night. She is on her current menstrual cycle, her most recent one being on 25 July. She says that she is having severe cramping pain. Feels her legs are weak. She has a history of previously "hard periods" but this 1 is really bad. She says her nerves are bad. She is tried Motrin and Advil and Tylenol and Midol without relief. Has not been able to eat anything in 24 hours. Has not had a bowel movement in 2 days. No nausea or vomiting. No UTI symptoms. No fevers. Patient has a history of pseudoseizures. Not on any current medications. TRAVEL OUTSIDE OF THE [place] IN LAST 30 DAYS: No - Related Data Allergies/Adverse Reactions: morphine Adverse Reaction (Verified 07/04/17 12:39) VOMITING Past Medical History - Past Medical History Cardiac Medical History: Reports: Hx Hypertension Neurological Medical History: Reports: Hx Migraine, Hx Seizures - pseudo Endocrine Medical History: Reports: Hx Hypothyroidism Renal/ Medical History: Denies: Hx Peritoneal Dialysis GI Medical History: Denies: Hx Gastritis, Hx Gastroesophageal Reflux Disease, Hx Ulcer Psychiatric Medical History: Reports: Hx Anxiety - panic attacks - Immunizations Immunizations up to date: Yes Hx Diphtheria, Pertussis, Tetanus Vaccination: Yes Physical Exam - Vital signs Vitals: Temp Pulse Resp BP Pulse Ox 98.5 F 91 16 111/87 H 95 07/20/18 14:30 07/20/18 14:30 07/20/18 14:30 07/20/18 14:30 07/20/18 14:30 Course - Vital Signs Vital signs: Temp Pulse Resp BP Pulse Ox 98.5 F 91 16 111/87 H 07/20/18 14:30 07/20/18 14:30 07/20/18 14:30 07/20/18 14:30 07/20/18 14:30
[2018-07-20 15:59] LABS: ABSOLUTE LYMPHOCYTES (AUTO) 2.3 10^3/uL (0.5-4.7); ABSOLUTE MONOCYTES (AUTO) 0.7 10^3/uL (0.1-1.4); BASOPHILS % (AUTO) 0.5 % (0-2); EOSINOPHILS % (AUTO) 0.6 % (0-6); HEMATOCRIT 40.8 % (36.0-47.0); HEMOGLOBIN 13.5 g/dL (12.0-15.5); LYMPHOCYTES % (AUTO) 32.5 % (13-45); MEAN CORPUSCULAR HEMOGLOBIN 31.1 pg (27.0-33.4); MEAN CORPUSCULAR HGB CONC 33.1 g/dL (32.0-36.0); MEAN CORPUSCULAR VOLUME 94 fl (80-97); MONOCYTES % (AUTO) 9.3 % (3-13); PLATELET COUNT 248 10^3/uL (150-450); RED BLOOD COUNT 4.34 10^6/uL (3.72-5.28); SEGMENTED NEUTROPHILS % (AUTO) 57.1 % (42-78); TOTAL CELLS COUNTED % (AUTO) 100 %
[2018-07-20 16:09] LABS: APPEARANCE,URINE CLOUDY; BILIRUBIN,URINE NEGATIVE (NEGATIVE); COLOR,URINE AMBER; GLUCOSE, URINE NEGATIVE (NEGATIVE); KETONES,URINE NEGATIVE (NEGATIVE); LEUKOCYTE ESTERASE,URINE TRACE (NEGATIVE); NITRITE,URINE NEGATIVE (NEGATIVE); PROTEIN,URINE >=500 mg/dL (NEGATIVE); URINE SPECIFIC GRAVITY 1.031; UROBILINOGEN,URINE NEGATIVE mg/dL (<2.0)
[2018-07-20] MEDS ORDERED: NORMAL SALINE 1000 ML 1,000 ML IV ONE (16:37)
[2018-07-20] MEDS ORDERED: KETOROLAC TROMETHAMINE INJ/PF 30 MG/1 ML SDV IV ONE (16:38)
--- NOTE | 2018-07-20 16:40 | ER Document Report ---
ED General - General Chief Complaint: Abdominal Cramping Stated Complaint: ABDOMINAL CRAMPS Time Seen by Provider: 07/20/18 15:23 Mode of Arrival: Ambulatory Information source: Patient Notes: This is a 22-year-old female with history of pseudoseizures who presents to the emergency room with vaginal bleeding and lower pelvic cramping since last night. Patient states her last normal menstrual period was June 24 and that normally she is very regular. She is sexually active but does not use any control. He denies any fever, chills. She did have nausea but was given some antiemetic in triage and feels better. TRAVEL OUTSIDE OF THE [place] IN LAST 30 DAYS: No - HPI Onset: Just prior to arrival Onset/Duration: Gradual Quality of pain: Dull Severity: Moderate Pain Level: 2 Associated symptoms: denies: Chest pain, Fever, Shortness of breath Exacerbated by: Movement Relieved by: Remaining still Similar symptoms previously: Yes - Often each month Recently seen / treated by doctor: No - . - Related Data Allergies/Adverse Reactions: morphine Adverse Reaction (Verified 07/04/17 12:39) VOMITING Past Medical History - General Information source: Patient - Social History Smoking Status: Never Smoker Cigarette use (# per day): No Chew tobacco use (# tins/day): No Frequency of alcohol use: None Drug Abuse: None Lives with: Family Family History: Reviewed & Not Pertinent Patient has suicidal ideation: No Patient has homicidal ideation: No - Past Medical History Cardiac Medical History: Reports: Hx Hypertension Neurological Medical History: Reports: Hx Migraine, Hx Seizures - pseudo Endocrine Medical History: Reports: Hx Hypothyroidism Renal/ Medical History: Denies: Hx Peritoneal Dialysis GI Medical History: Denies: Hx Gastritis, Hx Gastroesophageal Reflux Disease, Hx Ulcer Psychiatric Medical History: Reports: Hx Anxiety - panic attacks - Immunizations Immunizations up to date: Yes Hx Diphtheria, Pertussis, Tetanus Vaccination: Yes Review of Systems - Review of Systems Constitutional: denies: Chills, Fever EENT: No symptoms reported Cardiovascular: No symptoms reported Respiratory: No symptoms reported Gastrointestinal: No symptoms reported Genitourinary: See HPI Female Genitourinary: See HPI Musculoskeletal: No symptoms reported Skin: No symptoms reported Hematologic/Lymphatic: No symptoms reported Neurological/Psychological: No symptoms reported Physical Exam - Vital signs Vitals: Temp Pulse Resp BP Pulse Ox 98.5 F 91 16 111/87 H 95 07/20/18 14:30 07/20/18 14:30 07/20/18 14:30 07/20/18 14:30 07/20/18 14:30 Notes: Physical exam: GENERAL: Vision is alert and oriented x3, no acute distress HEAD: Atraumatic, normocephalic. EYES: Pupils equal round and reactive to light, extraocular movements intact, sclera anicteric, conjunctiva are normal. ENT: TMs normal, nares patent, oropharynx clear without exudates. Moist mucous membranes. NECK: Normal range of motion, supple without obvious mass or JVD. LUNGS: Breath sounds clear to auscultation bilaterally and equal. No wheezes rales or rhonchi. HEART: Regular rate and rhythm without murmurs, rubs or gallops. ABDOMEN: Soft, normoactive bowel sounds. No tenderness to palpation. No guardi ng, no rebound. No masses appreciated. EXTREMITIES: Normal range of motion, no pitting or edema. No clubbing or cyanosis. NEUROLOGICAL: Cranial nerves II through XII grossly intact. Normal speech, moving all extremities. PSYCH: Normal mood, normal affect. SKIN: Warm, Dry, normal turgor, no rashes or lesions noted. Course - Re-evaluation Re-evalutation: 07/20/18 19:17 Patient treated with IV Toradol with good relief. She was given IV fluids. She is currently tolerating chips and the pain is much improved and she is ready to go home. Repeat abdominal exam is soft and nontender. - Vital Signs Vital signs: Temp Pulse Resp BP Pulse Ox 98.5 F 91 16 111/87 H 95 07/20/18 14:30 07/20/18 14:30 07/20/18 14:30 07/20/18 14:30 07/20/18 14:30 - Laboratory Result Diagrams: 07/20/18 15:35 07/20/18 17:35 Laboratory results interpreted by me: 07/20/18 07/20/18 15:35 17:35 Chloride 110 H Total Protein 6.2 L Urine Protein >=500 H Urine Blood LARGE H Ur Leukocyte Esterase TRACE H Urine Ascorbic Acid 40 H Discharge - Discharge Clinical Impression: Painful menses Condition: Stable Disposition: HOME, SELF-CARE Additional Instructions: As we discussed, the blood work looked quite good. test was negative. I do believe this is a painful menses and I would like you to [facility]. It is important have a yearly Pap smear. You can discuss starting control with them. Return to the emergency room for worsening pain or bleeding. Prescriptions: Ibuprofen [Ibu] 800 mg PO Q8HP PRN #10 tablet PRN Reason: For Pain Referrals: ALICE ASHRAF MD [ACTIVE STAFF] - Follow up as needed (Is the number [facility]. Call tomorrow for the next available appointment. It may take a little while to get in.)
[2018-07-20 18:12] LABS: ALANINE AMINOTRANSFERASE 10 U/L (9-52); ALBUMIN 3.7 g/dL (3.5-5.0); ALKALINE PHOSPHATASE 41 U/L (38-126); ANION GAP 6 (5-19); ASPARTATE AMINO TRANSFERASE 17 U/L (14-36); BILIRUBIN,DIRECT 0.2 mg/dL (0.0-0.4); BILIRUBIN,TOTAL 0.5 mg/dL (0.2-1.3); BLOOD UREA NITROGEN 12 mg/dL (7-20); CALCIUM 8.5 mg/dL (8.4-10.2); CARBON DIOXIDE 23 mmol/L (22-30); CHLORIDE 110 mmol/L (98-107); GLUCOSE 103 mg/dL (75-110); LIPASE 85.9 U/L (23-300); POTASSIUM 3.8 mmol/L (3.6-5.0); SODIUM 139.1 mmol/L (137-145); TOTAL PROTEIN 6.2 g/dL (6.3-8.2)
[2018-07-20] MEDS ORDERED: ONDANSETRON ODT 4 MG TAB (6 TAB/ER DISP) PO PRN (19:10)
[2018-07-20 19:22] VITALS: BP 116/72
== END 2018-07-20 19:22 | disposition home or self-care (01) ==
LOC: ER 14:23
DX: N94.6 Dysmenorrhea, unspecified (principal); R11.0 Nausea; R10.2 Pelvic and perineal pain; I10 Essential (primary) hypertension
CPT/HCPCS: 99284; 96361; 96374; 36415; 83690; 84703; 85025; 80053; 81001; J1885; J7030

== ENCOUNTER 2018-08-06 19:06 | Emergency (ER) | payer SELFPAY ==
[2018-08-06 20:00] LABS: APPEARANCE,URINE CLOUDY; BILIRUBIN,URINE NEGATIVE (NEGATIVE); COLOR,URINE YELLOW; GLUCOSE, URINE NEGATIVE (NEGATIVE); KETONES,URINE NEGATIVE (NEGATIVE); LEUKOCYTE ESTERASE,URINE SMALL (NEGATIVE); NITRITE,URINE NEGATIVE (NEGATIVE); PROTEIN,URINE NEGATIVE (NEGATIVE); UROBILINOGEN,URINE NEGATIVE mg/dL (<2.0)
[2018-08-06 20:54] LABS: ABSOLUTE BASOPHILS # (AUTO) 0.1 10^3/uL (0.0-0.2); ABSOLUTE LYMPHOCYTES (AUTO) 2.8 10^3/uL (0.5-4.7); ABSOLUTE MONOCYTES (AUTO) 0.6 10^3/uL (0.1-1.4); ABSOLUTE NEUT (AUTO) 3.7 10^3/uL (1.7-8.2); BASOPHILS % (AUTO) 0.8 % (0-2); EOSINOPHILS % (AUTO) 0.4 % (0-6); HEMATOCRIT 38.9 % (36.0-47.0); HEMOGLOBIN 12.8 g/dL (12.0-15.5); LYMPHOCYTES % (AUTO) 39.6 % (13-45); MEAN CORPUSCULAR VOLUME 94 fl (80-97); MONOCYTES % (AUTO) 7.7 % (3-13); PLATELET COUNT 255 10^3/uL (150-450); RED BLOOD COUNT 4.14 10^6/uL (3.72-5.28); RED CELL DISTRIBUTION WIDTH 12.4 % (11.5-14.0); SEGMENTED NEUTROPHILS % (AUTO) 51.5 % (42-78); TOTAL CELLS COUNTED % (AUTO) 100 %; WHITE BLOOD COUNT 7.2 10^3/uL (4.0-10.5)
[2018-08-06 20:55] LABS: ALANINE AMINOTRANSFERASE 22 U/L (9-52); ALBUMIN 4.6 g/dL (3.5-5.0); ALKALINE PHOSPHATASE 50 U/L (38-126); ANION GAP 10 (5-19); ASPARTATE AMINO TRANSFERASE 19 U/L (14-36); BILIRUBIN,DIRECT 0.1 mg/dL (0.0-0.4); BILIRUBIN,TOTAL 0.4 mg/dL (0.2-1.3); BLOOD UREA NITROGEN 15 mg/dL (7-20); CALCIUM 9.6 mg/dL (8.4-10.2); CARBON DIOXIDE 27 mmol/L (22-30); CHLORIDE 104 mmol/L (98-107); GLUCOSE 86 mg/dL (75-110); POTASSIUM 4.1 mmol/L (3.6-5.0); SODIUM 140.6 mmol/L (137-145); TOTAL PROTEIN 7.4 g/dL (6.3-8.2)
--- NOTE | 2018-08-06 21:28 | RADIOLOGY REPORT (SQ) ---
US PELVIS HISTORY: . Vaginal bleeding. EXAM DATE: 08/06/2018 20:38 COMPARISON: None. TECHNIQUE: Grayscale, color Doppler, and spectral Doppler ultrasound images of the pelvis were obtained. FINDINGS: The uterus measures 9.0 x 4.1 x 3.5 cm. There is an intrauterine gestational sac with a mean sac diameter of 0.32 cm which corresponds to 5 weeks 0 days of . No yolk sac or pole is visualized. Nabothian cysts are seen in the cervix. The cervix measures 3.4 cm in length. The right ovary measures 3.6 x 2.0 x 2.3 cm and the left ovary measures 4.6 x 3.1 x 3.6 cm. There is a complex cyst in left ovary which measures 3.1 x 2.7 cm. Both ovaries contain normal color Doppler blood flow. IMPRESSION: 1. Intrauterine gestational sac corresponding to 5 weeks 0 days of . No yolk sac or pole is visualized at this time. Recommend follow-up imaging. 2. 3.1 cm complex left ovarian cyst.
--- NOTE | 2018-08-06 23:45 | ER Document Report ---
ED General <ERIK PATRICIA - Last Filed: 08/06/18 23:45> - General Mode of Arrival: Ambulatory Information source: Patient TRAVEL OUTSIDE OF THE [place] IN LAST 30 DAYS: No <CONI TOMPKINS - Last Filed: 08/06/18 23:54> - General Chief Complaint: Vaginal Bleeding Stated Complaint: CRAMPING Time Seen by Provider: 08/06/18 23:31 Notes: Patient is a 22 year old female presenting to the emergency department complaining of abdominal cramping and vaginal bleeding onset yesterday. Patient describes her vaginal bleeding as a light brown spotting. Patient states she presented to the emergency department on 07/20/2018 complaining of vaginal bleeding and was discharged home after also having a negative test. She states today, she took 3 at home tests which has proven to be positive. Patient states she would also like to confirm she is . (CONI TOMPKINS) - Related Data Allergies/Adverse Reactions: morphine Adverse Reaction (Verified 07/04/17 12:39) VOMITING Past Medical History - General Information source: Patient - Social History Smoking Status: Current Every Day Smoker Cigarette use (# per day): Yes - 1 PPD Chew tobacco use (# tins/day): No Smoking Education Provided: Yes Frequency of alcohol use: None Family History: Reviewed & Not Pertinent Patient has suicidal ideation: No Patient has homicidal ideation: No - Past Medical History Cardiac Medical History: Reports: Hx Hypertension Neurological Medical History: Reports: Hx Migraine, Hx Seizures - pseudo Endocrine Medical History: Reports: Hx Hypothyroidism Psychiatric Medical History: Reports: Hx Anxiety - panic attacks - Immunizations Immunizations up to date: Yes Hx Diphtheria, Pertussis, Tetanus Vaccination: Yes <CONI TOMPKINS - Last Filed: 08/06/18 23:54> Review of Systems - Review of Systems Constitutional: No symptoms reported EENT: No symptoms reported Cardiovascular: No symptoms reported Respiratory: No symptoms reported Gastrointestinal: See HPI, Abdominal pain Genitourinary: No symptoms reported Female Genitourinary: See HPI, , Vaginal bleeding - spotting Musculoskeletal: No symptoms reported Skin: No symptoms reported Hematologic/Lymphatic: No symptoms reported Neurological/Psychological: No symptoms reported -: Yes All other systems reviewed and negative <CONI TOMPKINS - Last Filed: 08/06/18 23:54> Physical Exam <CONI TOMPKINS - Last Filed: 08/06/18 23:54> - Vital signs Vitals: Temp Pulse Resp BP Pulse Ox 99.1 F 87 16 128/82 H 100 08/06/18 19:49 08/06/18 19:49 08/06/18 19:49 08/06/18 19:49 08/06/18 19:49 - Notes Notes: GENERAL: Alert, interacts well. No acute distress. HEAD: Normocephalic, atraumatic. EYES: Pupils equal, round, and reactive to light. Extraocular movements intact. ENT: Oral mucosa moist, tongue midline. NECK: Full range of motion. Supple. Trachea midline. LUNGS: Clear to auscultation bilaterally, no wheezes, rales, or rhonchi. No respiratory distress. HEART: Regular rate and rhythm. No murmurs, gallops, or rubs. ABDOMEN: Soft, non-tender. Non-distended. Bowel sounds present in all 4 quadr ants. EXTREMITIES: Moves all 4 extremities spontaneously. NEUROLOGICAL: Alert and oriented x3. Normal speech. PSYCH: Normal affect, normal mood. SKIN: Warm, dry, normal turgor. No rashes or lesions noted. (CONI TOMPKINS) Course - Laboratory Result Diagrams: 08/06/18 19:40 08/06/18 19:40 <ERIK PATRICIA - Last Filed: 08/06/18 23:45> - Laboratory Result Diagrams: 08/06/18 19:40 08/06/18 19:40 <CONI TOMPKINS - Last Filed: 08/06/18 23:54> - Vital Signs Vital signs: Temp Pulse Resp BP Pulse Ox 99.0 F 83 16 125/76 100 08/06/18 23:50 08/06/18 23:50 08/06/18 23:50 08/06/18 23:50 08/06/18 23:50 - Laboratory Laboratory results interpreted by nh: 08/06/18 08/06/18 19:36 19:40 Beta HCG, Quant 1066.20 H Ur Leukocyte Esterase SMALL H Urine HCG, Qual POSITIVE H Discharge <ERIK PATRICIA - Last Filed: 08/06/18 23:45> <CONI TOMPKINS - Last Filed: 08/06/18 23:54> - Discharge Clinical Impression: Intrauterine , Vaginal bleeding affecting early Condition: Stable Disposition: HOME, SELF-CARE Additional Instructions: Bleeding During Early You have been evaluated for passing blood while . While we take this symptom very seriously, most women with your degree of bleeding will go on to have a perfectly normal baby. At this time, there is no indication that a miscarriage will occur. (A miscarriage occurs when the fetus is abnormal. There is no medicine or treatment to prevent it.) A more serious cause of bleeding is tubal . An ultrasound can show whether the is in the uterus or in the tube. Sometimes in early , no fetus is seen. In this case, careful follow-up, including repeat blood tests and repeat ultrasound, is necessary. You should rest in bed until the symptoms have resolved. Do not douche or have sex for at least a week, or until OK'd by the doctor. Don't use tampons. Call the doctor or return for re-examination if there is an increase in bleeding or cramping, extreme weakness, fainting, new abdominal pain, fever, or passage of tissue. Follow-up with [facility] in the next few days-call Thursday for an appointment. RETURN TO THE EMERGENCY ROOM IF ANY NEW OR WORSENING SYMPTOMS. Referrals: [facility] [Provider Group] - 08/09/18 (Call Thursday for an appointment on Thursday or Thursday.) Scribe Attestation: 08/06/18 23:46 I personally performed the services described in the documentation, reviewed and edited the documentation which was dictated to the scribe in my presence, and it accurately records my words and actions. (ERIK PATRICIA) Scribe Documentation - Scribe Written by Laura:: Laura Booth, 08/06/2018 23:54 acting as scribe for :: Alfred <CONI TOMPKINS - Last Filed: 08/06/18 23:54>
[2018-08-06 23:53] VITALS: BP 125/76
== END 2018-08-06 23:56 | disposition home or self-care (01) ==
LOC: ER 19:06
DX: O20.9 Hemorrhage in early pregnancy, unspecified (principal); O99.331 Smoking (tobacco) complicating pregnancy, first trimester; Z88.6 Allergy status to analgesic agent
CPT/HCPCS: 36415; 76817; 80053; 81001; 81025; 84702; 85025; 93976; 99284

== ENCOUNTER 2018-09-05 16:17 | Emergency (ER) | payer MEDICAID ==
[2018-09-05 16:31] VITALS: BP 129/80
[2018-09-05 18:36] LABS: ABSOLUTE EOSINOPHILS # (AUTO) 0.1 10^3/uL (0.0-0.6); ABSOLUTE LYMPHOCYTES (AUTO) 2.5 10^3/uL (0.5-4.7); ABSOLUTE MONOCYTES (AUTO) 0.5 10^3/uL (0.1-1.4); ABSOLUTE NEUT (AUTO) 3.7 10^3/uL (1.7-8.2); BASOPHILS % (AUTO) 0.5 % (0-2); HEMATOCRIT 38.4 % (36.0-47.0); HEMOGLOBIN 12.8 g/dL (12.0-15.5); LYMPHOCYTES % (AUTO) 36.7 % (13-45); MEAN CORPUSCULAR HEMOGLOBIN 31.1 pg (27.0-33.4); MEAN CORPUSCULAR HGB CONC 33.4 g/dL (32.0-36.0); MEAN CORPUSCULAR VOLUME 93 fl (80-97); MONOCYTES % (AUTO) 7.3 % (3-13); PLATELET COUNT 254 10^3/uL (150-450); RED BLOOD COUNT 4.12 10^6/uL (3.72-5.28); RED CELL DISTRIBUTION WIDTH 12.6 % (11.5-14.0); SEGMENTED NEUTROPHILS % (AUTO) 54.5 % (42-78); TOTAL CELLS COUNTED % (AUTO) 100 %; WHITE BLOOD COUNT 6.9 10^3/uL (4.0-10.5)
[2018-09-05 18:48] LABS: ALANINE AMINOTRANSFERASE 9 U/L (9-52); ALBUMIN 4.7 g/dL (3.5-5.0); ALKALINE PHOSPHATASE 59 U/L (38-126); ANION GAP 8 (5-19); ASPARTATE AMINO TRANSFERASE 21 U/L (14-36); BILIRUBIN,DIRECT 0.2 mg/dL (0.0-0.4); BILIRUBIN,TOTAL 0.6 mg/dL (0.2-1.3); BLOOD UREA NITROGEN 11 mg/dL (7-20); CALCIUM 9.5 mg/dL (8.4-10.2); CARBON DIOXIDE 27 mmol/L (22-30); CHLORIDE 104 mmol/L (98-107); GLUCOSE 87 mg/dL (75-110); POTASSIUM 4.1 mmol/L (3.6-5.0); TOTAL PROTEIN 7.6 g/dL (6.3-8.2)
--- NOTE | 2018-09-05 18:59 | ER Document Report ---
ED General - General Chief Complaint: Vag Bleeding, +preg <12wks Stated Complaint: VAGINAL BLEEDING Time Seen by Provider: 09/05/18 17:45 Notes: Patient is a 22-year-old female who presents to the emergency department with a chief complaint of vaginal bleeding and mild lower abdominal pain. She is approximately 9 weeks . Last menstrual cycle was July 20. She has been having light bleeding for the past 2 weeks. Her bleeding has been pink, brown, and red. She has not seen an OB with [facility] at this point, but was started on vitamins by the health department. Denies any cramping, has a sharp pain in her mid lower abdomen. She denies any other vaginal discharge other than the bleeding. Denies any foul odors. Denies any fever. She did have dark stool starting yesterday. TRAVEL OUTSIDE OF THE [place] IN LAST 30 DAYS: No - Related Data Allergies/Adverse Reactions: morphine Adverse Reaction (Verified 07/04/17 12:39) VOMITING Past Medical History - General Last Menstrual Period: 07/20/18 - Social History Smoking Status: Current Every Day Smoker Chew tobacco use (# tins/day): No Frequency of alcohol use: None Drug Abuse: None Family History: Reviewed & Not Pertinent Patient has suicidal ideation: No Patient has homicidal ideation: No - Past Medical History Cardiac Medical History: Reports: Hx Hypertension Neurological Medical History: Reports: Hx Migraine, Hx Seizures - pseudo Endocrine Medical History: Reports: Hx Hypothyroidism Renal/ Medical History: Denies: Hx Peritoneal Dialysis GI Medical History: Denies: Hx Gastritis, Hx Gastroesophageal Reflux Disease, Hx Ulcer Psychiatric Medical History: Reports: Hx Anxiety - panic attacks - Immunizations Immunizations up to date: Yes Hx Diphtheria, Pertussis, Tetanus Vaccination: Yes Review of Systems - Review of Systems Notes: REVIEW OF SYSTEMS: CONSTITUTIONAL : Denies recent illness. Denies recent unintentional weight loss. Denies fever, chills, or sweats. EENT: Denies eye, ear, throat, or mouth pain, discharge, or symptoms. Denies nasal or sinus congestion. CARDIOVASCULAR: Denies chest pain. RESPIRATORY: Denies shortness of breath, cough, congestion, difficulty breathing, or wheezing. GASTROINTESTINAL: Denies nausea, vomiting, and diarrhea. Denies abdominal pain. Denies constipation. Last BM: Today. GENITOURINARY: Denies difficulty urinating, burning, blood in urine, urgency or frequency. FEMALE GENITOURINARY: See HPI MUSCULOSKELETAL: Denies neck and back pain. Denies joint pain or swelling. SKIN: Denies rash, itchiness, or lesions HEMATOLOGIC : Denies easy bruising or bleeding. LYMPHATIC: Denies swollen, painful, enlarged glands. NEUROLOGICAL: Denies no numbness or tingling denies weakness. Denies headache. Denies altered mental status. Denies alteration in speech. PSYCHIATRIC: Denies stress, anxiety, alteration in sleep patterns, or depression. All other systems reviewed and negative. Physical Exam - Vital signs Vitals: Temp Pulse Resp BP Pulse Ox 100.1 F 94 19 129/80 H 100 09/05/18 16:30 09/05/18 16:30 09/05/18 16:30 09/05/18 16:30 09/05/18 16:30 - Notes Notes: PHYSICAL EXAMINATION: GENERAL: Appears well, healthy, well-nourished, no acute distress. HEAD: Normocephalic, atraumatic. EYES: PERRL, conjunctiva normal, all extraocular movements intact, sclera nonicteric ENT: Moist mucous membranes. NECK: Supple, no noticeable swelling, redness, rash. Normal range of motion. LUNGS: Equal breath sounds bilaterally and clear to auscultation. No wheezes rales or rhonchi. CARDIOVASCULAR: S1-S2, regular rate, regular rhythm. Radial pulses 2+, normal. ABDOMEN: Normoactive bowel sounds. Soft, mildly tender low mid abdomen, no guarding, no rebound tenderness, and no masses palpated. EXTREMITIES: Normal strength and range of motion, no pitting or edema. No cyanosis. NEUROLOGICAL: Moves all extremities upon command. Strength 5/5 in all extremities. PSYCH: Normal mood, normal affect. SKIN: Warm, dry. No rash, lesions, ulcerations noted. Normal skin turgor. Course - Re-evaluation Re-evalutation: 09/05/182044 The patient's labs are normal. No anemia noted. Her quantitative beta hCG levels have noe since her last visit. Based on physical exam, a very low suspicion for an ectopic or pelvic inflammatory disease. Differential diagnosis includes miscarriage, intrauterine , uterine fibroid, or other pelvic etiology. I do not suspect appendicitis. I have informed the patient the results of her ultrasound and she shows an empty gestational sac. Patient became teary-eyed and stated "I really want my discharge paper work anymore" and walked out the door. I was not able to give her her discharge instructions [id number], but I was able to give her a call and tell her to follow-up with [facility]. She verbalized understanding over the phone. She also states that she will have a family memb er return to the emergency department and get her paperwork. I have left the paperwork in triage so the patient or a family member can pick pack worker the paperwork. - Vital Signs Vital signs: Temp Pulse Resp BP Pulse Ox 100.1 F 94 19 129/80 H 100 09/05/18 16:30 09/05/18 16:30 09/05/18 16:30 09/05/18 16:30 09/05/18 16:30 - Laboratory Result Diagrams: 09/05/18 18:20 09/05/18 18:20 Laboratory results interpreted by me: 09/05/18 18:20 Beta HCG, Quant 8272.80 H Discharge - Discharge Clinical Impression: Vaginal bleeding Condition: Stable Disposition: HOME, SELF-CARE Additional Instructions: You were seen today in the emergency department for vaginal bleeding while . Unfortunately there is no gestational sac noted on your ultrasound, consistent with a miscarriage. Please follow-up with [facility] in 2 days to have your blood redrawn and to have another ultrasound done. If you have worsening symptoms, have abdominal pain that gets worse, develop a fever greater than 100.4 F, or have any symptoms that are worrisome to you, please return to the emergency department.
--- NOTE | 2018-09-05 20:12 | ER Document Report ---
Entered by CONI TOMPKINS SCRIBE 09/05/182011 Acting as scribe for:JENNIFER HEATON DO ED Medical Screen (RME) - General Chief Complaint: Vag Bleeding, +preg <12wks Stated Complaint: VAGINAL BLEEDING Time Seen by Provider: 09/05/18 17:45 Mode of Arrival: Ambulatory Information source: Patient Notes: Patient is a 22 year old female, approximately 9 weeks and 1 day , presents to the emergency department complaining of vaginal bleeding. Patient states she presented to the emergency department on 08/06/2018 complaining of similar problems and had a vaginal ultrasound performed which showed and IUP with a gestational sac at approximately 5 weeks old. She states she began spotting approximately 2 weeks ago that started as bright pink and red blood which changed to dark red/ brown blood this week. She also complains of mild abdominal pain and dark stool onset yesterday. She reports starting vitamins a few weeks ago. Patient's LMP was on 07/20/2018. According to ultrasound patient is approximately 9 weeks and 1 day . She is O+. I have greeted and performed a rapid initial assessment of this patient. A comprehensive ED assessment and evaluation of the patient, analysis of test results and completion of the medical decision making process will be conducted by additional ED providers. GENERAL: Alert, interacts well. No acute distress. HEAD: Normocephalic, Atraumatic. EYES: Pupils equal, round, and reactive to light. EOMI. ENT: Oral mucosa moist, tongue midline. NECK: Full range of motion. Supple. Trachea midline. LUNGS: Clear to auscultation bilaterally, no wheezes, rales, or rhonchi. No respiratory distress. HEART: Regular rate and rhythm. No murmurs, gallops, or rubs. ABDOMEN: Soft, suprapubic tenderness to palpation, no guarding rigidity or rebounding. . Non-distended. Bowel sounds present in all 4 quadrants. EXTREMITIES: Moves all four extremities spontaneously. PSYCH: Normal affect, normal mood. TRAVEL OUTSIDE OF THE [place] IN LAST 30 DAYS: No - Related Data Allergies/Adverse Reactions: morphine Adverse Reaction (Verified 07/04/17 12:39) VOMITING Past Medical History - General Last Menstrual Period: 07/20/18 - Social History Chew tobacco use (# tins/day): No Frequency of alcohol use: None Drug Abuse: None - Past Medical History Cardiac Medical History: Reports: Hx Hypertension Neurological Medical History: Reports: Hx Migraine, Hx Seizures - pseudo Endocrine Medical History: Reports: Hx Hypothyroidism Renal/ Medical History: Denies: Hx Peritoneal Dialysis GI Medical History: Denies: Hx Gastritis, Hx Gastroesophageal Reflux Disease, Hx Ulcer Psychiatric Medical History: Reports: Hx Anxiety - panic attacks - Immunizations Immunizations up to date: Yes Hx Diphtheria, Pertussis, Tetanus Vaccination: Yes Physical Exam - Vital signs Vitals: Temp Pulse Resp BP Pulse Ox 100.1 F 94 19 129/80 H 100 09/05/18 16:30 09/05/18 16:30 09/05/18 16:30 09/05/18 16:30 09/05/18 16:30 Course - Vital Signs Vital signs: Temp Pulse Resp BP Pulse Ox 100.1 F 94 19 129/80 H 100 09/05/18 16:30 09/05/18 16:30 09/05/18 16:30 09/05/18 16:30 09/05/18 16:30 - Laboratory Result Diagrams: 09/05/18 18:20 09/05/18 18:20 Laboratory results interpreted by me: 09/05/18 18:20 Beta HCG, Quant 8272.80 H I personally performed the services described in the documentation, reviewed and edited the documentation which was dictated to the scribe in my presence, and it accurately records my words and actions.
--- NOTE | 2018-09-05 21:32 | RADIOLOGY REPORT (SQ) ---
EXAM DESCRIPTION: US TRANSVAGINAL COMPLETED DATE/TME: 09/05/2018 17:54 CLINICAL HISTORY: 22 years, Female, vaginal bleeding, 9 wks COMPARISON: None. TECHNIQUE: LIMITATIONS: None. FINDINGS: There is a 6 week 2 day intrauterine gestational sac, based on a mean sac diameter of 14-15 mm. There is no evidence of an embryo or yolk sac within the gestational sac. There is a 1.8 cm septated cystic lesion in the right ovary. This lesion may contain a daughter cyst. There are additional small follicular cysts in the ovaries bilaterally. The cervix measures 3.3 cm in length and is closed. No free fluid. IMPRESSION: Empty gestational sac as described. Diagnostic possibilities include incomplete spontaneous , early IUP and much less likely ectopic . Clinical correlation and follow-up are needed. Small complex cystic lesion in the right ovary. This could represent a corpus luteum cyst. copyright 2010 [employer]- All Rights Reserved
== END 2018-09-05 21:55 | disposition home or self-care (01) ==
LOC: ER 16:17
DX: O46.91 Antepartum hemorrhage, unspecified, first trimester (principal); O16.1 Unspecified maternal hypertension, first trimester; O99.331 Smoking (tobacco) complicating pregnancy, first trimester; Z3A.09 9 weeks gestation of pregnancy
CPT/HCPCS: 36415; 76817; 80053; 84702; 85025; 93976; 99283

== ENCOUNTER 2019-06-24 18:22 | Emergency (ER) | payer MEDICAID | END 2019-06-24 20:18 | disposition left against medical advice (07) | LOC: ER 18:22 | DX: Z53.21 Procedure and treatment not carried out due to patient leaving prior to being seen by health care provider (principal) ==

== ENCOUNTER 2019-09-21 14:02 | Emergency (ER) | payer SELFPAY ==
--- NOTE | 2019-09-21 15:22 | ER Document Report ---
ED ENT - General Chief Complaint: Breathing Difficulty Stated Complaint: DIFFICULTY BREATHING Time Seen by Provider: 09/21/19 15:13 Mode of Arrival: Ambulatory Information source: Patient Notes: 23-year-old female presented to ED for cough cold congestion temperature of 100.1 this morning. She states sometimes when she coughs feel hard she gets some vomiting and epigastric pain. She states sometimes with the coughing and epigastric pain and vomiting she does get some chest pain from that. She is alert oriented respirations regular nonlabored speaking in full sentences. TRAVEL OUTSIDE OF THE [place] IN LAST 30 DAYS: No - HPI Onset: Other - Couple days Onset/Duration: Intermittent Quality of pain: Achy Severity: Mild Pain Level: 2 Location of pain: Nose, Sinus Associated symptoms: Congestion, Cough, Fever, Runny nose, Sinus pain, Sinus drainage Similar symptoms previously: Yes Recently seen / treated by doctor: No - Related Data Allergies/Adverse Reactions: morphine Adverse Reaction (Verified 09/21/19 15:09) VOMITING Past Medical History - General Information source: Patient - Social History Smoking Status: Former Smoker Chew tobacco use (# tins/day): No Frequency of alcohol use: None Drug Abuse: None Lives with: Family Family History: Reviewed & Not Pertinent Patient has suicidal ideation: No Patient has homicidal ideation: No - Past Medical History Cardiac Medical History: Reports: Hx Hypertension Pulmonary Medical History: Reports: None Neurological Medical History: Reports: Hx Migraine, Hx Seizures - pseudo Endocrine Medical History: Reports: Hx Hypothyroidism Renal/ Medical History: Reports: None GI Medical History: Reports: None Musculoskeletal Medical History: Reports None Skin Medical History: Reports None Psychiatric Medical History: Reports: Hx Anxiety - panic attacks Traumatic Medical History: Reports: None Infectious Medical History: Reports: None Surgical Hx: Negative Past Surgical History: Reports: None - Immunizations Immunizations up to date: Yes Hx Diphtheria, Pertussis, Tetanus Vaccination: Yes Review of Systems - Review of Systems Constitutional: No symptoms reported EENT: Nose congestion, Sinus discharge Cardiovascular: No symptoms reported Respiratory: Cough Gastrointestinal: No symptoms reported Genitourinary: No symptoms reported Female Genitourinary: No symptoms reported Musculoskeletal: No symptoms reported Skin: No symptoms reported Hematologic/Lymphatic: No symptoms reported Neurological/Psychological: No symptoms reported -: Yes All other systems reviewed and negative Physical Exam - Vital signs Vitals: Temp Pulse Resp BP Pulse Ox 98.2 F 80 18 142/95 H 100 09/21/19 15:20 09/21/19 15:20 09/21/19 15:20 09/21/19 15:20 09/21/19 15:20 Interpretation: Normal - General General appearance: Appears well, Alert - HEENT Head: Normocephalic, Atraumatic Eyes: Normal Pupils: PERRL Ears: Normal External canal: Normal Tympanic membrane: Normal Sinus: Normal Nasal: Purulent discharge, Swelling Mouth/Lips: Normal Mucous membranes: Normal Pharynx: Post nasal drainage Neck: Normal - Respiratory Respiratory status: No respiratory distress. No: Respiratory distress, Tachypnea Chest status: Nontender. No: Tender Breath sounds: Normal, Nonproductive cough. No: Decreased air movement, Rales, Rhonchi, Stridor, Wheezing Chest palpation: Normal - Cardiovascular Rhythm: Regular Heart sounds: Normal auscultation Murmur: No - Abdominal Inspection: Normal Distension: No distension Bowel sounds: Normal Tenderness: Nontender Organomegaly: No organomegaly - Back Back: Normal, Nontender - Extremities General upper extremity: Normal inspection, Nontender, Normal color, Normal ROM, Normal temperature General lower extremity: Normal inspection, Nontender, Normal color, Normal ROM, Normal temperature, Normal weight bearing. No: Roxie's sign - Neurological Neuro grossly intact: Yes Cognition: Normal Orientation: AAOx4 [place]urel Coma Scale Eye Opening: Spontaneous Pretty Coma Scale Verbal: Oriented Pretty Coma Scale Motor: Obeys Commands Laurel Coma Scale Total: 15 Speech: Normal Motor strength normal: LUE, RUE, LLE, RLE Sensory: Normal - Psychological Associated symptoms: Normal affect, Normal mood - Skin Skin Temperature: Warm Skin Moisture: Dry Skin Color: Normal Course - Re-evaluation Re-evalutation: 09/21/19 20:54 After performing a Medical Screening Examination, I estimate there is LOW risk for ACUTE CORONARY SYNDROME, RESPIRATORY FAILURE, SEPSIS OR MENINGITIS, thus I consider the discharge disposition reasonable. I have reevaluated this patient multiple times and no significant life threatening changes are noted. The patient and I have discussed the diagnosis and risks, and we agree with discharging home with close follow-up. We also discussed returning to the Emergency Department immediately if new or worsening symptoms occur. We have discussed the symptoms which are most concerning (e.g., changing or worsening pain, trouble swallowing or breathing, neck stiffness, fever) that necessitate immediate return. - Vital Signs Vital signs: Temp Pulse Resp BP Pulse Ox 98.7 F 94 16 146/87 H 100 09/21/19 15:52 09/21/19 15:52 09/21/19 15:52 09/21/19 15:52 09/21/19 15:52 Discharge - Discharge Clinical Impression: URI (upper respiratory infection) Qualifiers: URI type: unspecified viral URI Qualified Code(s): J06.9 - Acute upper respiratory infection, unspecified Condition: Stable Disposition: HOME, SELF-CARE Additional Instructions: UPPER RESPIRATORY ILLNESS: You have a viral infection of the respiratory passages -- a "cold." This common infection causes nasal congestion, drainage, and often sore throat and cough. It is highly contagious. The disease usually lasts about 10 to 14 days. There is no "cure" for the viral infection -- it must run its course. If there is a complication, such as bacterial infection in the nose, sinuses, middle ear, or bronchial tubes, antibiotics may be required. The antibiotics won't affect the virus. Drink plenty of fluids. A humidifier may help. An expectorant medication or decongestant may make you more comfortable. Use acetaminophen or ibuprofen for fever or aches. See the doctor if fever persists over two days, if there is any significant worsening of your symptoms, or if you simply fail to improve as expected. You have been recommended treatment with Flonase which is [id number] 1 spray each nostril twice a day. You could also use salt soda solution gargles. These will help to remove the drainage from the back your throat. Chloraseptic spray was [id number] that will also help with your sore throat. Salt and soda solution gargle 1 quart of water 1 tablespoon of salt 1 teaspoon of baking soda Mixed 3 ingredients together and boil for 1 minute Placed in a covered quart jar Use 1/2 ounce of cold solution to gargle 3 times a day USE OF ACETAMINOPHEN (Tylenol): Acetaminophen may be taken for pain relief or fever control. It's much safer than aspirin, offering a wider range of "safe" dosages. It is safe during . Some brand names are Tylenol, Panadol, Datril, Anacin 3, Tempra, and Liquiprin. Acetaminophen can be repeated every four hours. The following are maximum recommended dosages: >89 pounds or adults 650 mg to 900 mg Acetaminophen can be repeated every four hours. Maximum dose not to exceed 4000 mg a day. FOLLOW-UP CARE: If you have been referred to a physician for follow-up care, call the physicians office for an appointment as you were instructed or within the next two days. If you experience worsening or a significant change in your symptoms, notify the physician immediately or return to the Emergency Department at any time for re-evaluation. Forms: Elevated Blood Pressure
[2019-09-21 15:54] VITALS: BP 146/87
== END 2019-09-21 15:57 | disposition home or self-care (01) ==
LOC: ER 14:02
DX: J06.9 Acute upper respiratory infection, unspecified (principal); B97.89 Other viral agents as the cause of diseases classified elsewhere; R05 Cough; R11.10 Vomiting, unspecified; R10.13 Epigastric pain; R07.9 Chest pain, unspecified; R50.9 Fever, unspecified; J34.89 Other specified disorders of nose and nasal sinuses; R09.81 Nasal congestion; R09.82 Postnasal drip; I10 Essential (primary) hypertension; Z87.891 Personal history of nicotine dependence
CPT/HCPCS: 99283

== ENCOUNTER 2020-01-03 11:09 | Emergency (ER) | payer SELFPAY ==
[2020-01-03 11:25] VITALS: BP 114/69
--- NOTE | 2020-01-03 11:38 | ER Document Report ---
ED Medical Screen (RME) - General Chief Complaint: Vaginal Bleeding Stated Complaint: VAGINAL BLEEDING Time Seen by Provider: 01/03/20 11:27 Notes: HPI: 24-year-old female who is a G3, , and to the emergency department complaining of vaginal bleeding when urinating since last night. Reports pelvic cramping in the suprapubic region. Slight low back pain. Has not had nausea vomiting or fever. 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 Last menstrual cycle was beginning of November PHYSICAL EXAMINATION: Limited exam in triage, mild tenderness over the suprapubic region on palpation exam deferred in triage. Patient is tearful patient is blood type O+ based on the records I have greeted and performed a rapid initial assessment of this patient. A comprehensive ED assessment and evaluation of the patient, analysis of test results and completion of medical decision making process will be conducted by an additional ED providers. TRAVEL OUTSIDE OF THE [place] IN LAST 30 DAYS: No - Related Data Allergies/Adverse Reactions: morphine Adverse Reaction (Verified 09/21/19 15:09) VOMITING Past Medical History - Past Medical History Cardiac Medical History: Reports: Hx Hypertension Neurological Medical History: Reports: Hx Migraine, Hx Seizures - pseudo Endocrine Medical History: Reports: Hx Hypothyroidism Psychiatric Medical History: Reports: Hx Anxiety - panic attacks - Immunizations Immunizations up to date: Yes Hx Diphtheria, Pertussis, Tetanus Vaccination: Yes Physical Exam - Vital signs Vitals: Temp Pulse Resp BP Pulse Ox 99.2 F 101 H 16 114/69 97 01/03/20 11:22 01/03/20 11:22 01/03/20 11:01/03/20 11:22 01/03/20 11:22 Course - Vital Signs Vital signs: Temp Pulse Resp BP Pulse Ox 99.2 F 101 H 16 114/69 97 01/03/20 11:27 01/03/20 11:22 01/03/20 11:22 01/03/20 11:22 01/03/20 11:22
--- NOTE | 2020-01-03 12:38 | RADIOLOGY REPORT (SQ) ---
EXAM DESCRIPTION: U/S 1TRIMESTER/1GEST W/DOPPLER IMAGES COMPLETED DATE/TIME: 01/03/2020 12:27 pm REASON FOR STUDY: pelvic pain preg COMPARISON: None. TECHNIQUE: Transabdominal static and realtime grayscale images acquired of the pelvis. Additional se lected spectral and color Doppler images recorded. All images stored on PACs. BHCG: Not available. CLINICAL DATES: 6 weeks, 4 days LIMITATIONS: None. FINDINGS: UTERUS: No visualized intrauterine . RIGHT ADNEXA: Normal ovary with normal vascular flow. No adnexal free fluid. No adnexal masses. LEFT ADNEXA: Normal ovary with normal vascular flow. No adnexal free fluid. No adnexal masses. FREE FLUID: None. OTHER: No other significant finding. IMPRESSION: NO VISUALIZED INTRA- OR EXTRAUTERINE . bHCG LEVEL NOT AVAILABLE FOR CORRELATION WITH US FINDINGS. ECTOPIC CANNOT BE EXCLUDED. FOLLOW-UP ULTRASOUND AND SERIAL BHCG LEVELS STRONGLY RECOMMENDED TO ACCURATELY ASSESS STATU S. TECHNICAL DOCUMENTATION: JOB ID: [id number] 2010 [employer]- All Rights Reserved Reading location - IP/workstation name: [email or web address]
[2020-01-03 12:42] LABS: ABSOLUTE LYMPHOCYTES (AUTO) 1.5 10^3/uL (0.5-4.7); ABSOLUTE MONOCYTES (AUTO) 0.3 10^3/uL (0.1-1.4); ABSOLUTE NEUT (AUTO) 4.1 10^3/uL (1.7-8.2); BASOPHILS % (AUTO) 0.7 % (0-2); EOSINOPHILS % (AUTO) 0.2 % (0-6); HEMATOCRIT 39.7 % (36.0-47.0); HEMOGLOBIN 13.4 g/dL (12.0-15.5); LYMPHOCYTES % (AUTO) 24.4 % (13-45); MEAN CORPUSCULAR HEMOGLOBIN 31.2 pg (27.0-33.4); MEAN CORPUSCULAR HGB CONC 33.7 g/dL (32.0-36.0); MEAN CORPUSCULAR VOLUME 93 fl (80-97); MONOCYTES % (AUTO) 5.8 % (3-13); PLATELET COUNT 240 10^3/uL (150-450); RED BLOOD COUNT 4.28 10^6/uL (3.72-5.28); RED CELL DISTRIBUTION WIDTH 12.8 % (11.5-14.0); SEGMENTED NEUTROPHILS % (AUTO) 68.9 % (42-78); TOTAL CELLS COUNTED % (AUTO) 100 %
[2020-01-03 12:51] LABS: APPEARANCE,URINE CLOUDY; BILIRUBIN,URINE NEGATIVE (NEGATIVE); COLOR,URINE YELLOW; GLUCOSE, URINE NEGATIVE (NEGATIVE); KETONES,URINE NEGATIVE (NEGATIVE); LEUKOCYTE ESTERASE,URINE TRACE (NEGATIVE); NITRITE,URINE NEGATIVE (NEGATIVE); PROTEIN,URINE 100 mg/dL (NEGATIVE); URINE SPECIFIC GRAVITY 1.021; UROBILINOGEN,URINE NEGATIVE mg/dL (<2.0)
[2020-01-03 13:05] LABS: ALBUMIN 4.4 g/dL (3.5-5.0); ALKALINE PHOSPHATASE 56 U/L (38-126); ANION GAP 5 (5-19); ASPARTATE AMINO TRANSFERASE 21 U/L (14-36); BILIRUBIN,TOTAL 0.5 mg/dL (0.2-1.3); BLOOD UREA NITROGEN 13 mg/dL (7-20); CALCIUM 9.6 mg/dL (8.4-10.2); CARBON DIOXIDE 26 mmol/L (22-30); CHLORIDE 106 mmol/L (98-107); GLUCOSE 101 mg/dL (75-110); TOTAL PROTEIN 7.5 g/dL (6.3-8.2)
== END 2020-01-03 15:53 | disposition left against medical advice (07) ==
LOC: ER 11:09
DX: O26.891 Other specified pregnancy related conditions, first trimester (principal); R10.2 Pelvic and perineal pain; O16.1 Unspecified maternal hypertension, first trimester; Z3A.01 Less than 8 weeks gestation of pregnancy; Z53.20 Procedure and treatment not carried out because of patient's decision for unspecified reasons
CPT/HCPCS: 36415; 76801; 80053; 81001; 84702; 85025; 93976; 99281